=== PATIENT | male | born 1945 | race Caucasian/White ===

== ENCOUNTER 2017-10-23 16:41 | Inpatient (IN) | payer MEDICARE ==
[~2017-10-23] VITALS: Ht 182.9 cm; Wt 97.6 kg
[2017-10-23 19:40] VITALS: BP 139/90
[2017-10-23] MEDS ORDERED: MAG HYDROX/AL HYDROX/SIMETH 30 ML ORAL.SUSP PO PRN (19:45)
[2017-10-23] MEDS ORDERED: METHYL SALICYLATE/MENTHOL TOPICAL OINTMENT 29GM TUBE. TP PRN (19:45)
[2017-10-23] MEDS ORDERED: MAGNESIUM HYDROXIDE 2,400 MG/30 ML ORAL.SUSP. PO PRN (19:45)
[2017-10-23 20:16] LABS: BASO % 0 % (0-3); EOS % 0 % (0-3); HEMATOCRIT 40.7 % (39.0-53.0); HEMOGLOBIN 13.9 g/dL (13.0-17.5); LYMPH # 0.6 x10^3/uL (1.0-4.8); LYMPH % 6 % (24-48); MEAN CORPUSCULAR HEMOGLOBIN 33 pg (25-35); MEAN CORPUSCULAR HGB CONC 34 g/dL (31-37); MEAN CORPUSCULAR VOLUME 97 fL (79-100); MONO # 0.8 x10^3/uL (0.0-1.1); MONO % 8 % (0-9); NEUT # 8.6 x10^3uL (1.8-7.7); NEUT % 86 % (31-73); PLATELET COUNT 247 x10^3/uL (140-400); RED BLOOD COUNT 4.18 x10^6/uL (4.30-5.70); RED CELL DISTRIBUTION WIDTH 15.2 % (11.5-14.5)
--- NOTE | 2017-10-23 20:21 | PDOC ---
Exam Note: Clifford Note: Please also refer to the separate dictated note~for this date of service dictated separately.~Patient seen individually. Discussed the patient with Nursing staff reviewed the chart.~Reviewed interim history and current functioning. Reviewed vital signs,~Labs/ Radiology~and current medications noted below. Continue current treatment with the changes noted in the dictated addendum note Assessment: Vital Signs: Vital Signs Date Time Temp Pulse Resp B/P (MAP) Pulse Ox O2 Delivery O2 Flow Rate FiO2 10/23/17 19:40 97.8 86 18 139/90 (106) 96 Labs: Laboratory Tests Test 10/23/17 19:58 White Blood Count 10.0 x10^3/uL (4.0-11.0) Red Blood Count 4.18 x10^6/uL (4.30-5.70) L Hemoglobin 13.9 g/dL (13.0-17.5) Hematocrit 40.7 % (39.0-53.0) Mean Corpuscular Volume 97 fL (79-100) Mean Corpuscular Hemoglobin 33 pg (25-35) Mean Corpuscular Hemoglobin Concent 34 g/dL (31-37) Red Cell Distribution Width 15.2 % (11.5-14.5) H Platelet Count 247 x10^3/uL (140-400) Neutrophils (%) (Auto) 86 % (31-73) H Lymphocytes (%) (Auto) 6 % (24-48) L Monocytes (%) (Auto) 8 % (0-9) Eosinophils (%) (Auto) 0 % (0-3) Basophils (%) (Auto) 0 % (0-3) Neutrophils # (Auto) 8.6 x10^3uL (1.8-7.7) H Lymphocytes # (Auto) 0.6 x10^3/uL (1.0-4.8) L Monocytes # (Auto) 0.8 x10^3/uL (0.0-1.1) Eosinophils # (Auto) 0.0 x10^3/uL (0.0-0.7) Basophils # (Auto) 0.0 x10^3/uL (0.0-0.2) Current Medications: Meds: Current Medications Acetaminophen (Tylenol) 650 mg PRN Q6HRS PRN PO PAIN / TEMP; Start 10/23/17 at 19:45 Multi-Ingredient Ointment (Analgesic [place]) 1 josse PRN QID PRN TP MUSCLE PAIN; Start 10/23/17 at 19:45 Al Hydroxide/Mg Hydroxide (Mylanta Plus Xs) 15 ml PRN AFTMEALHC PRN PO DYSPEPSIA; Start 10/23/17 at 19:45 Magnesium Hydroxide (Milk Of Magnesia) 2,400 mg PRN QHS PRN PO CONSTIPATION; Start 10/23/17 at 19:45 I have reviewed the current psychotropics carefully including drug interactions. Risk benefit ratio favors no change other than as noted in my dictated progress note. JAILENE SEO MD October 23, 2017 20:21
[2017-10-23 20:22] LABS: ALBUMIN 3.5 g/dL (3.4-5.0); ALBUMIN/GLOBULIN RATIO 0.9 (1.0-1.7); CALCIUM 9.5 mg/dL (8.5-10.1); CREATININE 2.2 mg/dL (0.7-1.3); GFR 29.7; POTASSIUM 4.1 mmol/L (3.5-5.1); TOTAL BILIRUBIN 0.6 mg/dL (0.2-1.0); TOTAL PROTEIN 7.3 g/dL (6.4-8.2)
[2017-10-23 20:25] LABS: VAL ACID 23 mcg/mL (50-100)
[2017-10-23 22:05] LABS: BILIRUBIN,URINE NEG (NEG); CLARITY,URINE CLEAR; COLOR,URINE YELLOW; GLUCOSE,URINE 500 mg/dL (NEG)
[2017-10-23 22:06] LABS: BACTERIA,URINE 0 /HPF (0-FEW); NITRITE,URINE NEG (NEG); SQUAMOUS EPITHELIAL CELL,UR FEW /LPF; UROBILINOGEN,URINE 0.2 mg/dL (0.2 mg/dL)
[2017-10-23] MEDS ORDERED: PANT40TA5 PO (22:19)
[2017-10-23] MEDS ORDERED: MAGN400C PO (22:19)
[2017-10-23] MEDS ORDERED: URSO500T8 PO (22:19)
[2017-10-23] MEDS ORDERED: INSU100I17 SQ (22:19)
[2017-10-23] MEDS ORDERED: NEOM28.32 TP (22:19)
[2017-10-23] MEDS ORDERED: INSU100I13 SQ (22:19)
[2017-10-23] MEDS ORDERED: POSA100T PO (22:19)
[2017-10-23] MEDS ORDERED: DONE5TAB7 PO (22:19)
[2017-10-23] MEDS ORDERED: CYAN10002 IJ (22:19)
[2017-10-23] MEDS ORDERED: DAPS100T PO (22:19)
[2017-10-23] MEDS ORDERED: ACYC400T PO (22:19)
[2017-10-23] MEDS ORDERED: PRED20TA PO (22:19)
[2017-10-23] MEDS ORDERED: DIVA250T PO (22:19)
[2017-10-23] MEDS ORDERED: DEXTROSE 50% 25 GM / 50ML DISP.SYRIN. IV PRN (22:30)
[2017-10-24] MEDS ORDERED: PARO20TA99 PO
[2017-10-24 02:36] VITALS: BP 106/77
[2017-10-24] MEDS: ACETAMINOPHEN 325 MG TABLET PO PRN (02:41)
--- NOTE | 2017-10-24 04:14 | RAD ---
INDICATION: fall, 2 lacerations on top to occipital region of head with a large bump/contusion on forehead COMPARISON: None. TECHNIQUE: Axial CT images obtained through the head without intravenous contrast. One or more of the following individualized dose reduction techniques were utilized for this examination: 1. Automated exposure control; 2. Adjustment of the mA and/or kV according to patient size; 3. Use of iterative reconstruction technique. FINDINGS: No intracranial hemorrhage. No midline shift. Basal cisterns patents. Ventricles and sulci are globally prominent. No acute osseous abnormality. Orbits and paranasal sinuses unremarkable. Scattered foci of low attenuation within the white matter. IMPRESSION: 1. No acute intracranial hemorrhage. 2. Scattered regions of low attenuation within the white matter. Non-specific in nature but frequently secondary to chronic small vessel ischemic disease. 3. Prominence of ventricles and sulci which is frequently secondary to age related volume loss. Electronically signed by: Bello Taylor MD (10/24/2017 4:10 AM) [id number]
[2017-10-24 06:04] VITALS: BP 110/63
[2017-10-24] MEDS ORDERED: POSACONAZOLE 100 MG PO SCH (08:00)
[2017-10-24] MEDS: predniSONE 20 MG TABLET PO SCH (08:12)
[2017-10-24] MEDS: DONEPEZIL HCL 5 MG TABLET. PO SCH (08:12)
[2017-10-24] MEDS: MAGNESIUM OXIDE 400 MG TABLET PO SCH (08:12)
[2017-10-24] MEDS: PANTOPRAZOLE 40 MG TABLET. PO SCH (08:12)
[2017-10-24] MEDS: NEOMY/BACITR/POLYMYXIN OINT PACKET. TP SCH ×2 (08:13→21:00)
[2017-10-24] MEDS: DAPSONE 100 MG TABLET PO SCH (08:13)
[2017-10-24] MEDS: ACYCLOVIR 200 MG CAPSULE PO SCH ×2 (08:13→21:00)
[2017-10-24] MEDS: INSULIN LISPRO 300 UNITS/3 ML INSULN.PEN. SQ SCH ×4 (08:15→21:00)
[2017-10-24] MEDS ORDERED: DIVALPROEX ER 250 MG TAB.ER.24H. PO SCH ×2 (09:00→21:00)
[2017-10-24 12:40] LABS: THYROID STIM HORMONE (TSH) 0.353 uIU/mL (0.358-3.740)
[2017-10-24] MEDS: PARoxetine 20 MG TABLET PO SCH (17:00)
[2017-10-24 18:22] VITALS: BP 160/91
--- NOTE | 2017-10-24 19:28 | HP ---
ADMIT DATE: 10/24/2017 IDENTIFYING DATA: The patient was seen individually evening of 10/24/2017. Discussed with the nursing staff. Previously, I discussed with the nursing staff on several occasions to gather historical information from [facility] where the patient has been hospitalized and had a psychiatric consult, which recommended inpatient psychiatric stabilization. 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 CHIEF COMPLAINT: "There is nothing wrong with my memory. It is 03/2018. The president is president Mesfin. Before him, it was Obama. Before him, it was Christian." HISTORY OF PRESENT ILLNESS: The patient has been an inpatient at the [facility] and was seen for a psychiatric consult by the consultation service and diagnosed with major neurocognitive disorder, Lewy body type. He does have a history of Parkinson's and chronic myelomonocytic leukemia. He has been increasingly agitated, has significant variations in his mentation at different times of the day. At periods of time, he appears more oriented; other times, he is oriented, not very minimally. He has been angry, irritable, demanding, threatening at times, and attempting to leave AMA, and even here on the unit, he has told the nursing staff, he could take a chair and threw it through the window to get out of here. He has been paranoid. He has had some sleep and appetite changes. No clear history of bipolar disorder. PAST PSYCHIATRIC HISTORY: As above. MEDICAL HISTORY: Positive for Parkinson's disease, chronic myelomonocytic leukemia, acute kidney injury, hypertension, diabetes mellitus. He is noted to be somewhat obsessive has a CMV reactivation, gout, and arthritis, Accu-Cheks before noon and at bedtime. ALLERGIES: BACTRIM. CODE STATUS: Full code. He ambulates up, Ad-Indira. MEDICATIONS: Takes his medications whole. DIET: Regular. No dietary restrictions. CURRENT PSYCHOTROPICS: Aricept 5 mg a day, Depakote DR 250 mg b.i.d., and Paxil 20 mg a day. FAMILY HISTORY: Noncontributory. 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 No alcohol or drug abuse history is noted. He was living at home with his in [place], [place]. MENTAL STATUS EXAM: The patient was seen individually evening of 10/24/2017. He believed it was 03/2018, and as noted above, he was unaware of, who the President was, prior to President Obama; he felt it was president Thien Gonzales. He is anxious, angry at times, using profanities, expressing himself, and this was initially; later in the session, he was much more cooperative. He has made statements to the nursing staff about taking a chair and throwing it through the window, but denied it when I questioned him. No active suicidal or homicidal ideation. Mood and affect are labile. Short-term memory is impaired. Reaction to hospitalization, the patient reluctantly accepting it. ASSETS: Supportive . IMPRESSION: Major neurocognitive disorder, Lewy body type with delusion, depression, behavioral disturbance, major neurocognitive disorder secondary to Parkinson's with delusion, depression, behavioral disturbance; anxiety disorder, unspecified; impulse control disorder, unspecified. Rest unchanged from above. PLAN: Admit to geropsychiatry unit at [facility]. I will see the patient daily individually from a psychiatric standpoint. Valproic acid level is 23 on current dosage of Depakote. We will change it to Depakene liquid to help with the compliance, increase it to 375 mg two times a day. Check CBC, CMP, valproic acid level in 3 days. Start Zyprexa 2.5 mg every 2 hours as needed psychosis, agitation, max 10 mg in 24 hours, trazodone 50 mg at bedtime as needed, may repeat x 1 for insomnia. Further changes depending on the reaction to initial changes. JAILENE SEO MD DR: DENA/marlon JOB#: [id number] / [id number]
[2017-10-24 20:08] LABS: T3 TOTAL 46 ng/dL (71-180); THYROXINE 7.1 ug/dL (4.5-12.0)
[2017-10-24] MEDS: INSULIN GLARGINE 300 UNITS/3 ML INSULN.PEN. SQ SCH (21:00)
--- NOTE | 2017-10-24 22:16 | PDOC ---
Exam Note: Clifford Note: Please also refer to the separate dictated note~for this date of service dictated separately.~Patient seen individually. Discussed the patient with Nursing staff reviewed the chart.~Reviewed interim history and current functioning. Reviewed vital signs,~Labs/ Radiology~and current medications noted below. Continue current treatment with the changes noted in the dictated addendum note Assessment: Vital Signs: Vital Signs Date Time Temp Pulse Resp B/P (MAP) Pulse Ox O2 Delivery O2 Flow Rate FiO2 10/24/17 18:22 98.1 92 18 160/91 (114) 97 Labs: Laboratory Tests Test 10/24/17 07:54 10/24/17 11:38 Glucose (Fingerstick) 216 mg/dL (70-99) H 118 mg/dL (70-99) H Current Medications: Meds: Current Medications Acetaminophen (Tylenol) 650 mg PRN Q6HRS PRN PO PAIN / TEMP Last administered on 10/24/17at 02:41; Start 10/23/17 at 19:45 Multi-Ingredient Ointment (Analgesic [place]) 1 jennifer PRN QID PRN TP MUSCLE PAIN; Start 10/23/17 at 19:45 Al Hydroxide/Mg Hydroxide (Mylanta Plus Xs) 15 ml PRN AFTMEALHC PRN PO DYSPEPSIA; Start 10/23/17 at 19:45 Magnesium Hydroxide (Milk Of Magnesia) 2,400 mg PRN QHS PRN PO CONSTIPATION; Start 10/23/17 at 19:45 Divalproex Sodium (Depakote Er) 250 mg BID PO Last administered on 10/24/17at 08 :12; Start 10/24/17 at 09:00; Stop 10/24/17 at 19:17; Status DC Cyanocobalamin (Vitamin B-12) 1,000 mcg WEEKLY IM ; Start 10/30/17 at 09:00 Dapsone (Aczone) 100 mg DAILY PO Last administered on 10/24/17at 08:13; Start at 09:00 Donepezil HCl (Aricept) 5 mg DAILY PO Last administered on 10/24/17at 08:12; Start 10/24/17 at 09:00 Insulin Glargine (Lantus) 15 units QHS SQ ; Start 10/24/17 at 21:00 Prednisone (Prednisone) 40 mg DAILYWBKFT PO Last administered on 10/24/17at 08: 12; Start 10/24/17 at 08:00 Acyclovir (Zovirax) 400 mg Q12HR PO Last administered on 10/24/17at 08:13; Start 10/24/17 at 09:00 Magnesium Oxide (Magnesium Oxide) 400 mg DAILY PO Last administered on at 08:12; Start 10/24/17 at 09:00 Neomycin/ Polymyxin/ Bacitracin (Triple Antibiotic Ointment) 1 pkt BID TP Last administered on 10/24/17at 08:13; Start 10/24/17 at 09:00 Pantoprazole Sodium (Protonix) 40 mg DAILYAC PO Last administered on 10/24/17at 08:12; Start 10/24/17 at 07:30 Non-Formulary Medication (Posaconazole (Noxafil)) 100 mg DAILYWBKFT PO ; Start 10/24/17 at 08:00; Stop 10/24/17 at 08:42; Status DC Insulin Human Lispro (HumaLOG) 0-9 UNITS TIDWMEALHC SQ Last administered on at 08:15; Start 10/24/17 at 08:00 Dextrose 12.5 gm PRN Q15MIN PRN IV SEE COMMENTS; Start 10/23/17 at 22:30 Paroxetine HCl (Paxil) 20 mg DAILYWSUP PO ; Start 10/24/17 at 17:00 Trazodone HCl (Desyrel) 50 mg PRN QHS PRN PO INSOMNIA, MAY REPEAT X1; Start at 18:45 Olanzapine (ZyPREXA ZYDIS) 2.5 mg PRN Q2HR PRN PO ANXIETY / AGITATION; Start at 18:45 Divalproex Sodium (Depakote Er) 375 mg BID PO ; Start 10/24/17 at 21:00 Active Scripts Active Reported Paxil (Paroxetine Hcl) 20 Mg Tablet 20 Mg PO DAILYWSUP Ursodiol 500 Mg Tablet 500 Mg PO Lantus Solostar (Insulin Glargine,Hum.rec.anlog) 100 Unit/1 Ml Insuln.pen 15 Units SQ QHS Novolog Flexpen (Insulin Aspart) 100 Unit/1 Ml Insuln.pen 0-14 Units SQ Donepezil Hcl 5 Mg Tablet 5 Mg PO DAILY Dapsone 100 Mg Tablet 100 Mg PO DAILY Cyanocobalamin Injection (Cyanocobalamin (Vitamin B-12)) 1,000 Mcg/1 Ml Vial 1, 000 Mcg IJ WEEKLY Acyclovir 400 Mg Tablet 400 Mg PO Q12HR Magnesium (Magnesium Oxide) 400 Mg Capsule 400 Mg PO DAILY Prednisone 20 Mg Tablet 40 Mg PO DAILYWBKFT Noxafil (Posaconazole) 100 Mg Tablet.dr 100 Mg PO DAILYWBKFT Pantoprazole Sodium 40 Mg Tablet.dr 40 Mg PO DAILY Neosporin Ointment (Neomy Sulf/Bacitrac Zn/Poly) 28.3 Gm Oint...g. 1 Jennifer TP BID Depakote Er (Divalproex Sodium) 250 Mg Tab.er.24h 250 Mg PO BID I have reviewed the current psychotropics carefully including drug interactions. Risk benefit ratio favors no change other than as noted in my dictated progress note. Diagnosis: Problems: (1) Anxiety disorder (2) Lewy body dementia with behavioral disturbance (3) Impulse control disorder JAILENE SEO MD October 24, 2017 22:16
[2017-10-25 03:07] LABS: HEMOGLOBIN A1C 6.2 % (4.8-5.6)
--- NOTE | 2017-10-25 04:16 | CONS ---
DATE OF CONSULTATION: 10/24/2017 REASON FOR CONSULTATION: Medical management. HISTORY OF PRESENT ILLNESS: The patient is a 71-year-old male patient with a history of chronic myelomonocytic leukemia status post stem cell transplantation on 12/23/2017, and since then the patient has altered mental status. He has been aggressive verbally, eloped off of the locked unit from at [facility] twice, refusing medication and when I spoke to him apparently he wanted to get out of here to go home, apparently was very aggressive and verbally abusive to his and she was scared to take him home. PAST MEDICAL HISTORY: Significant for chronic myelomonocytic leukemia status post stem cell transplantation on 12/23/2017. He has acute kidney injury, has hypertension, diabetes, cytomegalovirus reactivation, gout and arthritis. PAST PSYCHIATRIC HISTORY: Significant for dementia with possible Lewy body, Parkinson's disease, OCD, major depressive disorder and neurocognitive disorder. PAST SURGICAL HISTORY: Significant for bone marrow biopsy. He has also colonoscopy, hernia repair, appendectomy, rotator cuff repair, tonsillectomy, adenoidectomy, transurethral resection of the prostate and lithotripsy x 2. FAMILY HISTORY: Noncontributory. SOCIAL HISTORY: He is . He is a former smoker, quit in 08/1991, never used smokeless tobacco, does not drink alcohol or use any recreational drugs. ALLERGIES: HE IS ALLERGIC TO BACTRIM. MEDICATIONS: He was transferred to [facility] on the following medications: He is on Noxafil 100 mg daily, dapsone 100 mg daily, acyclovir 400 mg q. 12 hourly, Aricept 5 mg daily, divalproex sodium 250 mg p.o. b.i.d., duloxetine 20 mg daily. He is on magnesium oxide 400 mg daily, ursodiol 500 mg once a day. He is on Protonix 40 mg once a day, prednisone 40 mg daily. He is on NovoLog insulin ____-14 units subcutaneously before meals and Lantus insulin 50 units at bedtime. He is on Neosporin ointment applied topically twice a day, cyanocobalamin, vitamin B12 1000 mcg intramuscular once a week. REVIEW OF SYSTEMS: Unobtainable. The patient was very uncooperative and angry. PHYSICAL EXAMINATION: GENERAL: However, on examining him, he looked pale. No jaundice, cyanosis, or thyromegaly. No jugular venous distention. No lower limb edema. VITAL SIGNS: Her heart rate was 78, blood pressure 110/63, temperature was 97.4, respiratory rate was 16 and oxygen saturation was 94%. The rest of clinical examination is unremarkable. The patient is ambulatory, ambulates without assistance or assistive devices. LABORATORY DATA: Showed a white cell count of 10,000; hemoglobin 14; hematocrit 41; MCV 97 and platelet count 247,000. His chemistry showed a serum sodium to be 138, potassium 4.1, chloride 102, bicarbonate 23, anion gap of 13, BUN 41, creatinine 2.2, estimated GFR was 50 mL per minute. His glucose is 276, calcium was 9.5, magnesium 2. Total bilirubin, AST, ALT, alkaline phosphatase were normal. Total protein was 7.3, albumin 3.5. His serum iron was 77, TIBC was 296, percent saturation was 26. His serum triglyceride was 138. Total cholesterol 179, LDL was 100, VLDL was 27, HDL cholesterol was 52 and the ratio was 3. His TSH was low at 0.353. Vitamin B12 was more than 2000 pg/mL. His urinalysis showed the urine was yellow, clear with a pH of 5.5, specific gravity was 1.020. There was large amount of protein, large amount of glucose, trace of ketones, trace of blood, negative for nitrite and leukocyte esterase, 3-5 rbc's, 5-10 wbc's and no bacteria. His urine toxicology screen showed valproic acid to be only 23. He did have a CT scan of the head, which basically showed no acute intracranial hemorrhage, scattered regions of low attenuation within the white matter, nonspecific in nature, but frequently secondary to chronic small vessel ischemic disease. Has prominence of ventricles and sulci, which is frequently secondary to, age-related volume loss. ASSESSMENT AND PLAN: In summary, this is a 71-year-old male patient who was admitted from [facility], as he has been verbally aggressive and eloped from secure unit x 2. He has major neurocognitive disorder with delusion, depression, possible Lewy body. He has multiple medical problems including a chronic myelomonocytic leukemia status post stem cell transplant. He seems to have acute on chronic kidney injury, hypertension, type 2 diabetes, gout and arthritis. Medically, the patient seems to be generally stable. He does have obviously chronic kidney disease that is stable. Hypertension seems to be well controlled. Type 2 diabetes, unfortunately he is uncooperative and refuses his insulin; however, that is a result of his neurocognitive disorder. We will obviously follow him closely and make any recommendation. Thank you, Dr. Loving, for allowing me to participate in the care of this patient. MERLINE CAMPUZANO MD DR: GARCIA/marlon JOB#: [id number] / [id number]
[2017-10-25 06:06] VITALS: BP 104/67
[2017-10-25] MEDS: PANTOPRAZOLE 40 MG TABLET. PO SCH (07:55)
[2017-10-25] MEDS: DIVALPROEX 125 MG CAP.SPRINK PO SCH ×2 (07:58→20:57)
[2017-10-25] MEDS: MAGNESIUM OXIDE 400 MG TABLET PO SCH (07:58)
[2017-10-25] MEDS: DONEPEZIL HCL 5 MG TABLET. PO SCH (07:58)
[2017-10-25] MEDS: ACYCLOVIR 200 MG CAPSULE PO SCH ×2 (07:59→20:57)
[2017-10-25] MEDS: DAPSONE 100 MG TABLET PO SCH (07:59)
[2017-10-25] MEDS: predniSONE 20 MG TABLET PO SCH (07:59)
[2017-10-25] MEDS: INSULIN LISPRO 300 UNITS/3 ML INSULN.PEN. SQ SCH ×4 (08:05→21:00)
[2017-10-25] MEDS: NEOMY/BACITR/POLYMYXIN OINT PACKET. TP SCH ×2 (08:08→21:02)
[2017-10-25] MEDS: PARoxetine 20 MG TABLET PO SCH (16:44)
[2017-10-25 16:48] VITALS: BP 145/83
--- NOTE | 2017-10-25 20:19 | PDOC ---
Exam Note: Clifford Note: Please also refer to the separate dictated note~for this date of service dictated separately.~Patient seen individually. Discussed the patient with Nursing staff reviewed the chart.~Reviewed interim history and current functioning. Reviewed vital signs,~Labs/ Radiology~and current medications noted below. Continue current treatment with the changes noted in the dictated addendum note Assessment: Vital Signs: Vital Signs Date Time Temp Pulse Resp B/P (MAP) Pulse Ox O2 Delivery O2 Flow Rate FiO2 10/25/17 16:48 96.8 95 18 145/83 (103) 99 Room Air I&O Intake and Output 10/25/17 07:00 Intake Total 480 ml Balance 480 ml Intake Oral 480 ml Labs: Laboratory Tests Test 10/25/17 07:43 10/25/17 11:36 10/25/17 17:03 10/25/17 19:36 Glucose (Fingerstick) 171 mg/dL (70-99) H 179 mg/dL (70-99) H 323 mg/dL (70-99) H 214 mg/dL (70-99) H Current Medications: Meds: Current Medications Acetaminophen (Tylenol) 650 mg PRN Q6HRS PRN PO PAIN / TEMP Last administered on 10/24/17at 02:41; Start 10/23/17 at 19:45 Multi-Ingredient Ointment (Analgesic [place]) 1 jennifer PRN QID PRN TP MUSCLE PAIN; Start 10/23/17 at 19:45 Al Hydroxide/Mg Hydroxide (Mylanta Plus Xs) 15 ml PRN AFTMEALHC PRN PO DYSPEPSIA; Start 10/23/17 at 19:45 Magnesium Hydroxide (Milk Of Magnesia) 2,400 mg PRN QHS PRN PO CONSTIPATION; Start 10/23/17 at 19:45 Divalproex Sodium (Depakote Er) 250 mg BID PO Last administered on 10/24/17at 08 :12; Start 10/24/17 at 09:00; Stop 10/24/17 at 19:17; Status DC Cyanocobalamin (Vitamin B-12) 1,000 mcg WEEKLY IM ; Start 10/30/17 at 09:00 Dapsone (Aczone) 100 mg DAILY PO Last administered on 10/25/17at 07:59; Start at 09:00 Donepezil HCl (Aricept) 5 mg DAILY PO Last administered on 10/25/17at 07:58; Start 10/24/17 at 09:00; Stop 10/25/17 at 18:25; Status DC Insulin Glargine (Lantus) 15 units QHS SQ ; Start 10/24/17 at 21:00 Prednisone (Prednisone) 40 mg DAILYWBKFT PO Last administered on 10/25/17at 07: 59; Start 10/24/17 at 08:00 Acyclovir (Zovirax) 400 mg Q12HR PO Last administered on 10/25/17at 07:59; Start 10/24/17 at 09:00 Magnesium Oxide (Magnesium Oxide) 400 mg DAILY PO Last administered on at 07:58; Start 10/24/17 at 09:00 Neomycin/ Polymyxin/ Bacitracin (Triple Antibiotic Ointment) 1 pkt BID TP Last administered on 10/25/17at 08:08; Start 10/24/17 at 09:00 Pantoprazole Sodium (Protonix) 40 mg DAILYAC PO Last administered on 10/25/17at 07:55; Start 10/24/17 at 07:30 Non-Formulary Medication (Posaconazole (Noxafil)) 100 mg DAILYWBKFT PO ; Start 10/24/17 at 08:00; Stop 10/24/17 at 08:42; Status DC Insulin Human Lispro (HumaLOG) 0-9 UNITS TIDWMEALHC SQ Last administered on at 17:32; Start 10/24/17 at 08:00 Dextrose 12.5 gm PRN Q15MIN PRN IV SEE COMMENTS; Start 10/23/17 at 22:30 Paroxetine HCl (Paxil) 20 mg DAILYWSUP PO Last administered on 10/25/17at 16:44 ; Start 10/24/17 at 17:00 Trazodone HCl (Desyrel) 50 mg PRN QHS PRN PO INSOMNIA, MAY REPEAT X1; Start at 18:45 Olanzapine (ZyPREXA ZYDIS) 2.5 mg PRN Q2HR PRN PO ANXIETY / AGITATION; Start at 18:45 Divalproex Sodium (Depakote Er) 375 mg BID PO ; Start 5/16/18 at 21:00; Stop at 07:46; Status DC Divalproex Sodium (Depakote Sprinkles) 375 mg BID PO Last administered on at 07:58; Start 10/25/17 at 09:00 Memantine (Namenda) 5 mg DAILY PO ; Start 10/26/17 at 09:00 Donepezil HCl (Aricept) 10 mg DAILY PO ; Start 10/26/17 at 09:00 Active Scripts Active Reported Paxil (Paroxetine Hcl) 20 Mg Tablet 20 Mg PO DAILYWSUP Ursodiol 500 Mg Tablet 500 Mg PO Lantus Solostar (Insulin Glargine,Hum.rec.anlog) 100 Unit/1 Ml Insuln.pen 15 Units SQ QHS Novolog Flexpen (Insulin Aspart) 100 Unit/1 Ml Insuln.pen 0-14 Units SQ Donepezil Hcl 5 Mg Tablet 5 Mg PO DAILY Dapsone 100 Mg Tablet 100 Mg PO DAILY Cyanocobalamin Injection (Cyanocobalamin (Vitamin B-12)) 1,000 Mcg/1 Ml Vial 1, 000 Mcg IJ WEEKLY Acyclovir 400 Mg Tablet 400 Mg PO Q12HR Magnesium (Magnesium Oxide) 400 Mg Capsule 400 Mg PO DAILY Prednisone 20 Mg Tablet 40 Mg PO DAILYWBKFT Noxafil (Posaconazole) 100 Mg Tablet. 100 Mg PO DAILYWBKFT Pantoprazole Sodium 40 Mg Tablet. 40 Mg PO DAILY Neosporin Ointment (Neomy Sulf/Bacitrac Zn/Poly) 28.3 Gm Oint...g. 1 Jennifer TP BID Depakote Er (Divalproex Sodium) 250 Mg Tab.er.24h 250 Mg PO BID I have reviewed the current psychotropics carefully including drug interactions. Risk benefit ratio favors no change other than as noted in my dictated progress note. Diagnosis: Problems: (1) Anxiety disorder (2) Lewy body dementia with behavioral disturbance (3) Impulse control disorder JAILENE SEO MD October 25, 2017 20:18
[2017-10-25] MEDS: INSULIN GLARGINE 300 UNITS/3 ML INSULN.PEN. SQ SCH (21:01)
[2017-10-26] MEDS: PARoxetine 20 MG TABLET PO SCH (07:50)
[2017-10-26] MEDS: predniSONE 20 MG TABLET PO SCH (07:50)
[2017-10-26] MEDS: DIVALPROEX 125 MG CAP.SPRINK PO SCH ×2 (07:50→20:44)
[2017-10-26] MEDS: MAGNESIUM OXIDE 400 MG TABLET PO SCH (07:50)
[2017-10-26] MEDS: PANTOPRAZOLE 40 MG TABLET. PO SCH (07:50)
[2017-10-26] MEDS: ACYCLOVIR 200 MG CAPSULE PO SCH ×2 (07:53→20:45)
[2017-10-26] MEDS: DAPSONE 100 MG TABLET PO SCH (07:53)
[2017-10-26] MEDS: NEOMY/BACITR/POLYMYXIN OINT PACKET. TP SCH (07:54)
[2017-10-26] MEDS: MEMANTINE 5 MG TABLET. PO SCH (07:57)
[2017-10-26] MEDS: INSULIN LISPRO 300 UNITS/3 ML INSULN.PEN. SQ SCH ×4 (07:57→20:52)
[2017-10-26] MEDS: DONEPEZIL HCL 10 MG TABLET PO SCH (07:57)
[2017-10-26 16:21] VITALS: BP 142/87
[2017-10-26] MEDS: INSULIN GLARGINE 300 UNITS/3 ML INSULN.PEN. SQ SCH (20:46)
[2017-10-26] MEDS: traZODone 50 MG TABLET. PO PRN (20:47)
--- NOTE | 2017-10-27 03:01 | PN ---
DATE: 10/24/2017 This late entry 10/24/2017 covers elements not covered in my initial note 10/24/2017. SUBJECTIVE: The patient was staffed at a treatment team meeting in the afternoon, seen individually in the evening. 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 He did have a fall previous evening. CT head is negative, more compliant with taking his medications. REVIEW OF SYSTEMS: No CV, , pulmonary, eye, ENT system symptoms on review. MENTAL STATUS EXAM: Oriented to himself and situation. Speech has some latency, coherent. Abstraction fair, computation impaired, language function intact. Mood and affect remain somewhat labile, anxious, and suspicious. LABORATORY DATA: Reviewed. IMPRESSION: Major neurocognitive disorder, Lewy body with delusion, depression. Rest unchanged. PLAN: Continue psychotropics mentioned in my initial note. On direct questioning, the patient felt it was March 2018, felt Trlon was the President and Obama before him, unaware of the Hendrix being before Obama and felt it was Christian before President Hendrix. We will continue current psychotropics, adjust as clinically indicated. JAILENE SEO MD DR: DENA/marlon JOB#: [id number] / [id number]
--- NOTE | 2017-10-27 03:10 | PN ---
DATE: 10/25/2017 This late entry 10/25/2017 covers elements not covered in my initial note 10/25/2017. SUBJECTIVE: I met with the patient in the evening. The patient refused his bedtime medications, but then took his medication during the day on 10/25/2017, took them whole. In the evening, he was interacting better with staff. REVIEW OF SYSTEMS: No CV, , pulmonary, eye, ENT system symptoms on review. Reliability poor. MENTAL STATUS EXAM: Oriented to himself. Insight, judgment, recent and remote memory, attention, concentration, fund of knowledge poor, consistent with his diagnosis mentioned in my initial note including major neurocognitive disorder, Lewy body with delusion, depression, behavioral disturbance. Rest unchanged. PLAN: Start Namenda 5 mg a day. Increase Aricept to 10 mg a day. Continue Depakote, Paxil, trazodone for now. Follow labs level, adjust to reach therapeutic level on the Depakote. MAN Raj SEO MD DR: DENA/marlon JOB#: [id number] / [id number]
[2017-10-27 06:11] VITALS: BP 129/79
[2017-10-27 07:50] LABS: BASO % 0 % (0-3); EOS % 0 % (0-3); HEMATOCRIT 36.5 % (39.0-53.0); HEMOGLOBIN 12.8 g/dL (13.0-17.5); LYMPH # 1.2 x10^3/uL (1.0-4.8); LYMPH % 13 % (24-48); MEAN CORPUSCULAR HEMOGLOBIN 34 pg (25-35); MEAN CORPUSCULAR HGB CONC 35 g/dL (31-37); MEAN CORPUSCULAR VOLUME 97 fL (79-100); MONO # 0.8 x10^3/uL (0.0-1.1); MONO % 9 % (0-9); NEUT % 78 % (31-73); PLATELET COUNT 198 x10^3/uL (140-400); RED BLOOD COUNT 3.77 x10^6/uL (4.30-5.70); RED CELL DISTRIBUTION WIDTH 15.4 % (11.5-14.5)
[2017-10-27] MEDS: INSULIN LISPRO 300 UNITS/3 ML INSULN.PEN. SQ SCH ×4 (08:00→20:43)
[2017-10-27] MEDS: MEMANTINE 5 MG TABLET. PO SCH (08:19)
[2017-10-27] MEDS: DIVALPROEX 125 MG CAP.SPRINK PO SCH (08:19)
[2017-10-27] MEDS: DONEPEZIL HCL 10 MG TABLET PO SCH (08:19)
[2017-10-27] MEDS: predniSONE 20 MG TABLET PO SCH (08:19)
[2017-10-27] MEDS: PANTOPRAZOLE 40 MG TABLET. PO SCH (08:19)
[2017-10-27] MEDS: MAGNESIUM OXIDE 400 MG TABLET PO SCH (08:19)
[2017-10-27 08:20] LABS: ALBUMIN 3.2 g/dL (3.4-5.0); ALBUMIN/GLOBULIN RATIO 0.9 (1.0-1.7); ALK PHOS 52 U/L (46-116); ALT (SGPT) 32 U/L (16-63); ANION GAP 11 (6-14); AST (SGOT) 25 U/L (15-37); BLOOD UREA NITROGEN 31 mg/dL (8-26); BUN/CREATININE RATIO 18 (6-20); CALCIUM 9.2 mg/dL (8.5-10.1); CARBON DIOXIDE 24 mmol/L (21-32); CHLORIDE 106 mmol/L (98-107); CREATININE 1.7 mg/dL (0.7-1.3); GFR 39.9; GLUCOSE 141 mg/dL (70-99); POTASSIUM 3.7 mmol/L (3.5-5.1); SODIUM 141 mmol/L (136-145); TOTAL BILIRUBIN 0.6 mg/dL (0.2-1.0); TOTAL PROTEIN 6.6 g/dL (6.4-8.2)
[2017-10-27] MEDS: ACYCLOVIR 200 MG CAPSULE PO SCH ×2 (08:20→20:52)
[2017-10-27] MEDS: DAPSONE 100 MG TABLET PO SCH (08:22)
[2017-10-27 08:31] LABS: VAL ACID 40 mcg/mL (50-100)
[2017-10-27 16:37] VITALS: BP 150/83
[2017-10-27] MEDS: PARoxetine 20 MG TABLET PO SCH (17:00)
[2017-10-27] MEDS: INSULIN GLARGINE 300 UNITS/3 ML INSULN.PEN. SQ SCH (20:42)
[2017-10-27] MEDS: traZODone 50 MG TABLET. PO PRN (20:56)
[2017-10-27] MEDS ORDERED: DIVALPROEX 125 MG CAP.SPRINK PO SCH (21:00)
--- NOTE | 2017-10-27 22:46 | PDOC ---
Exam Note: Clifford Note: Late entry for date of service October 26, 2017. Please also refer to the separate dictated note~for this date of service dictated separately.~Patient seen individually. Discussed the patient with Nursing staff reviewed the chart.~ Reviewed interim history and current functioning. Reviewed vital signs,~Labs/ Radiology~and current medications noted below. Continue current treatment with the changes noted in the dictated addendum note Assessment: Vital Signs: VS - Last 72 Hours, by Label Date Time Temp Pulse Resp B/P (MAP) Pulse Ox O2 Delivery O2 Flow Rate FiO2 10/27/17 16:37 98.0 94 16 150/83 (105) 93 10/27/17 06:11 98.9 83 16 129/79 (96) 93 10/26/17 16:21 97.4 95 16 142/87 (105) 100 10/25/17 16:48 96.8 95 18 145/83 (103) 99 Room Air 10/25/17 06:06 97.8 83 16 104/67 (79) 94 Vital Signs Date Time Temp Pulse Resp B/P (MAP) Pulse Ox O2 Delivery O2 Flow Rate FiO2 10/27/17 16:37 98.0 94 16 150/83 (105) 93 10/25/17 16:48 Room Air I&O Intake and Output 10/27/17 07:00 Intake Total 820 ml Balance 820 ml Intake Oral 820 ml Labs: Laboratory Tests Test 10/27/17 06:58 10/27/17 08:39 10/27/17 12:11 10/27/17 16:55 White Blood Count 9.0 x10^3/uL (4.0-11.0) Red Blood Count 3.77 x10^6/uL (4.30-5.70) L Hemoglobin 12.8 g/dL (13.0-17.5) L Hematocrit 36.5 % (39.0-53.0) L Mean Corpuscular Volume 97 fL (79-100) Mean Corpuscular Hemoglobin 34 pg (25-35) Mean Corpuscular Hemoglobin Concent 35 g/dL (31-37) Red Cell Distribution Width 15.4 % (11.5-14.5) H Platelet Count 198 x10^3/uL (140-400) Neutrophils (%) (Auto) 78 % (31-73) H Lymphocytes (%) (Auto) 13 % (24-48) L Monocytes (%) (Auto) 9 % (0-9) Eosinophils (%) (Auto) 0 % (0-3) Basophils (%) (Auto) 0 % (0-3) Neutrophils # (Auto) 7.0 x10^3uL (1.8-7.7) Lymphocytes # (Auto) 1.2 x10^3/uL (1.0-4.8) Monocytes # (Auto) 0.8 x10^3/uL (0.0-1.1) Eosinophils # (Auto) 0.0 x10^3/uL (0.0-0.7) Basophils # (Auto) 0.0 x10^3/uL (0.0-0.2) Sodium Level 141 mmol/L (136-145) Potassium Level 3.7 mmol/L (3.5-5.1) Chloride Level 106 mmol/L (98-107) Carbon Dioxide Level 24 mmol/L (21-32) Anion Gap 11 (6-14) Blood Urea Nitrogen 31 mg/dL (8-26) H Creatinine 1.7 mg/dL (0.7-1.3) H Estimated GFR (Cockcroft-Gault) 39.9 BUN/Creatinine Ratio 18 (6-20) Glucose Level 141 mg/dL (70-99) H Calcium Level 9.2 mg/dL (8.5-10.1) Total Bilirubin 0.6 mg/dL (0.2-1.0) Aspartate Amino Transferase (AST) 25 U/L (15-37) Alanine Aminotransferase (ALT) 32 U/L (16-63) Alkaline Phosphatase 52 U/L (46-116) Total Protein 6.6 g/dL (6.4-8.2) Albumin 3.2 g/dL (3.4-5.0) L Albumin/Globulin Ratio 0.9 (1.0-1.7) L Valproic Acid Level 40 mcg/mL (50-100) L Valproic Acid Last Dose Date 10/26/17 Valproic Acid Last Dose Time 2100 Glucose (Fingerstick) 212 mg/dL (70-99) H 299 mg/dL (70-99) H 236 mg/dL (70-99) H Test 10/27/17 19:38 Glucose (Fingerstick) 326 mg/dL (70-99) H Current Medications: Meds: Current Medications Acetaminophen (Tylenol) 650 mg PRN Q6HRS PRN PO PAIN / TEMP Last administered on 10/24/17at 02:41; Start 10/23/17 at 19:45 Multi-Ingredient Ointment (Analgesic [place]) 1 jennifer PRN QID PRN TP MUSCLE PAIN; Start 10/23/17 at 19:45 Al Hydroxide/Mg Hydroxide (Mylanta Plus Xs) 15 ml PRN AFTMEALHC PRN PO DYSPEPSIA; Start 10/23/17 at 19:45 Magnesium Hydroxide (Milk Of Magnesia) 2,400 mg PRN QHS PRN PO CONSTIPATION; Start 10/23/17 at 19:45 Divalproex Sodium (Depakote Er) 250 mg BID PO Last administered on 10/24/17at 08 :12; Start 10/24/17 at 09:00; Stop 10/24/17 at 19:17; Status DC Cyanocobalamin (Vitamin B-12) 1,000 mcg WEEKLY IM ; Start 10/30/17 at 09:00 Dapsone (Aczone) 100 mg DAILY PO Last administered on 10/27/17at 08:22; Start at 09:00 Donepezil HCl (Aricept) 5 mg DAILY PO Last administered on 10/25/17at 07:58; Start 10/24/17 at 09:00; Stop 10/25/17 at 18:25; Status DC Insulin Glargine (Lantus) 15 units QHS SQ Last administered on 10/27/17at 20:42 ; Start 10/24/17 at 21:00 Prednisone (Prednisone) 40 mg DAILYWBKFT PO Last administered on 10/27/17at 08: 19; Start 10/24/17 at 08:00 Acyclovir (Zovirax) 400 mg Q12HR PO Last administered on 10/27/17at 20:52; Start 10/24/17 at 09:00 Magnesium Oxide (Magnesium Oxide) 400 mg DAILY PO Last administered on at 08:19; Start 10/24/17 at 09:00 Neomycin/ Polymyxin/ Bacitracin (Triple Antibiotic Ointment) 1 pkt BID TP Last administered on 10/26/17at 07:54; Start 10/24/17 at 09:00; Stop 10/26/17 at 13:18 ; Status DC Pantoprazole Sodium (Protonix) 40 mg DAILYAC PO Last administered on 10/27/17at 08:19; Start 10/24/17 at 07:30 Non-Formulary Medication (Posaconazole (Noxafil)) 100 mg DAILYWBKFT PO ; Start 10/24/17 at 08:00; Stop 10/24/17 at 08:42; Status DC Insulin Human Lispro (HumaLOG) 0-9 UNITS TIDWMEALHC SQ Last administered on at 20:43; Start 10/24/17 at 08:00 Dextrose 12.5 gm PRN Q15MIN PRN IV SEE COMMENTS; Start 10/23/17 at 22:30 Paroxetine HCl (Paxil) 20 mg DAILYWSUP PO Last administered on 10/27/17at 17:00 ; Start 10/24/17 at 17:00 Trazodone HCl (Desyrel) 50 mg PRN QHS PRN PO INSOMNIA, MAY REPEAT X1 Last administered on 10/27/17at 20:56; Start 10/24/17 at 18:45 Olanzapine (ZyPREXA ZYDIS) 2.5 mg PRN Q2HR PRN PO ANXIETY / AGITATION; Start at 18:45 Divalproex Sodium (Depakote Er) 375 mg BID PO ; Start 10/24/17 at 21:00; Stop at 07:46; Status DC Divalproex Sodium (Depakote Sprinkles) 375 mg BID PO Last administered on at 08:19; Start 10/25/17 at 09:00; Stop 10/27/17 at 19:45; Status DC Memantine (Namenda) 5 mg DAILY PO Last administered on 10/27/17at 08:19; Start 10/26/17 at 09:00 Donepezil HCl (Aricept) 10 mg DAILY PO Last administered on 10/27/17at 08:19; Start 10/26/17 at 09:00 Divalproex Sodium (Depakote Sprinkles) 500 mg BID PO Last administered on at 19:56; Start 10/27/17 at 21:00 Active Scripts Active Reported Paxil (Paroxetine Hcl) 20 Mg Tablet 20 Mg PO DAILYWSUP Ursodiol 500 Mg Tablet 500 Mg PO Lantus Solostar (Insulin Glargine,Hum.rec.anlog) 100 Unit/1 Ml Insuln.pen 15 Units SQ QHS Novolog Flexpen (Insulin Aspart) 100 Unit/1 Ml Insuln.pen 0-14 Units SQ Donepezil Hcl 5 Mg Tablet 5 Mg PO DAILY Dapsone 100 Mg Tablet 100 Mg PO DAILY Cyanocobalamin Injection (Cyanocobalamin (Vitamin B-12)) 1,000 Mcg/1 Ml Vial 1, 000 Mcg IJ WEEKLY Acyclovir 400 Mg Tablet 400 Mg PO Q12HR Magnesium (Magnesium Oxide) 400 Mg Capsule 400 Mg PO DAILY Prednisone 20 Mg Tablet 40 Mg PO DAILYWBKFT Noxafil (Posaconazole) 100 Mg Tablet.dr 100 Mg PO DAILYWBKFT Pantoprazole Sodium 40 Mg Tablet.dr 40 Mg PO DAILY Neosporin Ointment (Neomy Sulf/Bacitrac Zn/Poly) 28.3 Gm Oint...g. 1 Jennifer TP BID Depakote Er (Divalproex Sodium) 250 Mg Tab.er.24h 250 Mg PO BID I have reviewed the current psychotropics carefully including drug interactions. Risk benefit ratio favors no change other than as noted in my dictated progress note. Diagnosis: Problems: (1) Anxiety disorder (2) Lewy body dementia with behavioral disturbance (3) Impulse control disorder JAILENE SEO MD October 27, 2017 22:46
--- NOTE | 2017-10-27 23:17 | PDOC ---
Exam Note: Clifford Note: Please also refer to the separate dictated note~for this date of service dictated separately.~Patient seen individually. Discussed the patient with Nursing staff reviewed the chart.~Reviewed interim history and current functioning. Reviewed vital signs,~Labs/ Radiology~and current medications noted below. Continue current treatment with the changes noted in the dictated addendum note Assessment: Vital Signs: Vital Signs Date Time Temp Pulse Resp B/P (MAP) Pulse Ox O2 Delivery O2 Flow Rate FiO2 10/27/17 16:37 98.0 94 16 150/83 (105) 93 10/25/17 16:48 Room Air I&O Intake and Output 10/27/17 07:00 Intake Total 820 ml Balance 820 ml Intake Oral 820 ml Labs: Laboratory Tests Test 10/27/17 06:58 10/27/17 08:39 10/27/17 12:11 10/27/17 16:55 White Blood Count 9.0 x10^3/uL (4.0-11.0) Red Blood Count 3.77 x10^6/uL (4.30-5.70) L Hemoglobin 12.8 g/dL (13.0-17.5) L Hematocrit 36.5 % (39.0-53.0) L Mean Corpuscular Volume 97 fL (79-100) Mean Corpuscular Hemoglobin 34 pg (25-35) Mean Corpuscular Hemoglobin Concent 35 g/dL (31-37) Red Cell Distribution Width 15.4 % (11.5-14.5) H Platelet Count 198 x10^3/uL (140-400) Neutrophils (%) (Auto) 78 % (31-73) H Lymphocytes (%) (Auto) 13 % (24-48) L Monocytes (%) (Auto) 9 % (0-9) Eosinophils (%) (Auto) 0 % (0-3) Basophils (%) (Auto) 0 % (0-3) Neutrophils # (Auto) 7.0 x10^3uL (1.8-7.7) Lymphocytes # (Auto) 1.2 x10^3/uL (1.0-4.8) Monocytes # (Auto) 0.8 x10^3/uL (0.0-1.1) Eosinophils # (Auto) 0.0 x10^3/uL (0.0-0.7) Basophils # (Auto) 0.0 x10^3/uL (0.0-0.2) Sodium Level 141 mmol/L (136-145) Potassium Level 3.7 mmol/L (3.5-5.1) Chloride Level 106 mmol/L (98-107) Carbon Dioxide Level 24 mmol/L (21-32) Anion Gap 11 (6-14) Blood Urea Nitrogen 31 mg/dL (8-26) H Creatinine 1.7 mg/dL (0.7-1.3) H Estimated GFR (Cockcroft-Gault) 39.9 BUN/Creatinine Ratio 18 (6-20) Glucose Level 141 mg/dL (70-99) H Calcium Level 9.2 mg/dL (8.5-10.1) Total Bilirubin 0.6 mg/dL (0.2-1.0) Aspartate Amino Transferase (AST) 25 U/L (15-37) Alanine Aminotransferase (ALT) 32 U/L (16-63) Alkaline Phosphatase 52 U/L (46-116) Total Protein 6.6 g/dL (6.4-8.2) Albumin 3.2 g/dL (3.4-5.0) L Albumin/Globulin Ratio 0.9 (1.0-1.7) L Valproic Acid Level 40 mcg/mL (50-100) L Valproic Acid Last Dose Date 10/26/17 Valproic Acid Last Dose Time 2100 Glucose (Fingerstick) 212 mg/dL (70-99) H 299 mg/dL (70-99) H 236 mg/dL (70-99) H Test 10/27/17 19:38 Glucose (Fingerstick) 326 mg/dL (70-99) H Current Medications: Meds: Current Medications Acetaminophen (Tylenol) 650 mg PRN Q6HRS PRN PO PAIN / TEMP Last administered on 10/24/17at 02:41; Start 10/23/17 at 19:45 Multi-Ingredient Ointment (Analgesic [place]) 1 jennifer PRN QID PRN TP MUSCLE PAIN; Start 10/23/17 at 19:45 Al Hydroxide/Mg Hydroxide (Mylanta Plus Xs) 15 ml PRN AFTMEALHC PRN PO DYSPEPSIA; Start 10/23/17 at 19:45 Magnesium Hydroxide (Milk Of Magnesia) 2,400 mg PRN QHS PRN PO CONSTIPATION; Start 10/23/17 at 19:45 Divalproex Sodium (Depakote Er) 250 mg BID PO Last administered on 10/24/17at 08 :12; Start 10/24/17 at 09:00; Stop 10/24/17 at 19:17; Status DC Cyanocobalamin (Vitamin B-12) 1,000 mcg WEEKLY IM ; Start 10/30/17 at 09:00 Dapsone (Aczone) 100 mg DAILY PO Last administered on 10/27/17at 08:22; Start at 09:00 Donepezil HCl (Aricept) 5 mg DAILY PO Last administered on 10/25/17at 07:58; Start 10/24/17 at 09:00; Stop 10/25/17 at 18:25; Status DC Insulin Glargine (Lantus) 15 units QHS SQ Last administered on 10/27/17at 20:42 ; Start 10/24/17 at 21:00 Prednisone (Prednisone) 40 mg DAILYWBKFT PO Last administered on 10/27/17at 08: 19; Start 10/24/17 at 08:00 Acyclovir (Zovirax) 400 mg Q12HR PO Last administered on 10/27/17at 20:52; Start 10/24/17 at 09:00 Magnesium Oxide (Magnesium Oxide) 400 mg DAILY PO Last administered on at 08:19; Start 10/24/17 at 09:00 Neomycin/ Polymyxin/ Bacitracin (Triple Antibiotic Ointment) 1 pkt BID TP Last administered on 10/26/17at 07:54; Start 10/24/17 at 09:00; Stop 10/26/17 at 13:18 ; Status DC Pantoprazole Sodium (Protonix) 40 mg DAILYAC PO Last administered on 10/27/17at 08:19; Start 10/24/17 at 07:30 Non-Formulary Medication (Posaconazole (Noxafil)) 100 mg DAILYWBKFT PO ; Start 10/24/17 at 08:00; Stop 10/24/17 at 08:42; Status DC Insulin Human Lispro (HumaLOG) 0-9 UNITS TIDWMEALHC SQ Last administered on at 20:43; Start 10/24/17 at 08:00 Dextrose 12.5 gm PRN Q15MIN PRN IV SEE COMMENTS; Start 10/23/17 at 22:30 Paroxetine HCl (Paxil) 20 mg DAILYWSUP PO Last administered on 10/27/17at 17:00 ; Start 10/24/17 at 17:00 Trazodone HCl (Desyrel) 50 mg PRN QHS PRN PO INSOMNIA, MAY REPEAT X1 Last administered on 10/27/17at 20:56; Start 10/24/17 at 18:45 Olanzapine (ZyPREXA ZYDIS) 2.5 mg PRN Q2HR PRN PO ANXIETY / AGITATION; Start at 18:45 Divalproex Sodium (Depakote Er) 375 mg BID PO ; Start 10/24/17 at 21:00; Stop at 07:46; Status DC Divalproex Sodium (Depakote Sprinkles) 375 mg BID PO Last administered on at 08:19; Start 10/25/17 at 09:00; Stop 10/27/17 at 19:45; Status DC Memantine (Namenda) 5 mg DAILY PO Last administered on 10/27/17at 08:19; Start 10/26/17 at 09:00 Donepezil HCl (Aricept) 10 mg DAILY PO Last administered on 10/27/17at 08:19; Start 10/26/17 at 09:00 Divalproex Sodium (Depakote Sprinkles) 500 mg BID PO Last administered on at 19:56; Start 10/27/17 at 21:00 Active Scripts Active Reported Paxil (Paroxetine Hcl) 20 Mg Tablet 20 Mg PO DAILYWSUP Ursodiol 500 Mg Tablet 500 Mg PO Lantus Solostar (Insulin Glargine,Hum.rec.anlog) 100 Unit/1 Ml Insuln.pen 15 Units SQ QHS Novolog Flexpen (Insulin Aspart) 100 Unit/1 Ml Insuln.pen 0-14 Units SQ Donepezil Hcl 5 Mg Tablet 5 Mg PO DAILY Dapsone 100 Mg Tablet 100 Mg PO DAILY Cyanocobalamin Injection (Cyanocobalamin (Vitamin B-12)) 1,000 Mcg/1 Ml Vial 1, 000 Mcg IJ WEEKLY Acyclovir 400 Mg Tablet 400 Mg PO Q12HR Magnesium (Magnesium Oxide) 400 Mg Capsule 400 Mg PO DAILY Prednisone 20 Mg Tablet 40 Mg PO DAILYWBKFT Noxafil (Posaconazole) 100 Mg Tablet. 100 Mg PO DAILYWBKFT Pantoprazole Sodium 40 Mg Tablet. 40 Mg PO DAILY Neosporin Ointment (Neomy Sulf/Bacitrac Zn/Poly) 28.3 Gm Oint...g. 1 Jennifer TP BID Depakote Er (Divalproex Sodium) 250 Mg Tab.er.24h 250 Mg PO BID I have reviewed the current psychotropics carefully including drug interactions. Risk benefit ratio favors no change other than as noted in my dictated progress note. Diagnosis: Problems: (1) Anxiety disorder (2) Lewy body dementia with behavioral disturbance (3) Impulse control disorder JAILENE SEO MD October 27, 2017 23:17
[2017-10-28 06:03] VITALS: BP 135/89
[2017-10-28 07:30] VITALS: BP 120/82
[2017-10-28 07:35] VITALS: BP 108/81
[2017-10-28] MEDS ORDERED: LIDOCAINE 1% Multi-Dose 20 ML VIAL. ONE (07:51)
[2017-10-28] MEDS: INSULIN LISPRO 300 UNITS/3 ML INSULN.PEN. SQ SCH ×4 (08:00→19:34)
--- NOTE | 2017-10-28 10:28 | EKG ---
[address] [address] Test Date: 2017-10-28 Test Time: 10:24:45 Pat Name: MEKHI MCCARTY Department: Room: [address] [place] [address] Gender: M Trauma Nurse: : 1945 Requested By: JAILENE SEO Order Number: [id number] Reading MD: Albert Garcia MD Measurements Intervals [place] Rate: 95 P: 36 ND: 134 QRS: -31 QRSD: 86 T: 36 QT: 350 QTc: 443 Interpretive Statements SINUS RHYTHM ABNORMAL LEFT AXIS DEVIATION R-S TRANSITION ZONE IN V LEADS DISPLACED TO THE LEFT QRS(T) CONTOUR ABNORMALITY CONSISTENT WITH INFERIOR INFARCT PROBABLY OLD ABNORMAL ECG RI6.01 No previous ECG available for comparison Electronically Signed On 11-25-2017 22:36:42 CDT by Albert Garcia MD
--- NOTE | 2017-10-28 11:16 | RAD ---
CT scan of the head without contrast 10/28/2017 Clinical History: Headache and dizziness post fall. Technique: Unenhanced, contiguous, 5 mm axial sections were obtained through the head. One or more of the following individualized dose reduction techniques were utilized for this study: 1. Automated exposure control. 2. Adjustment of the mA and/or kV according to patient size. 3. Use of iterative reconstruction technique. Findings: Comparison study is dated 10/24/2017. There is generalized parenchymal atrophy. Areas of decreased attenuation are seen within the periventricular and subcortical white matter of both cerebral hemispheres consistent with areas of small vessel ischemic disease. No acute parenchymal abnormality is seen. No extra-axial fluid collection is noted. No skull fracture is seen. Soft tissue swelling seen involving the frontal scalp. Impression: No acute intracranial abnormality is seen. CT scan of the facial bones without contrast 10/28/2017 CLINICAL HISTORY: Fall on face earlier today with facial pain. TECHNIQUE: Unenhanced, contiguous, 0.625 mm axial sections were obtained through the facial bones and orbits. 3 mm reconstructed sagittal, axial and coronal images were obtained. One or more of the following individualized dose reduction techniques were utilized for this study: 1. Automated exposure control. 2. Adjustment of the mA and/or kV according to patient size. 3. Use of iterative reconstruction technique. FINDINGS: Soft tissue swelling seen involving the right frontal scalp. No facial bone fracture is seen. Both orbits are intact. A 1.3 cm mucous retention cyst is seen involving the left maxillary sinus. Mild mucosal thickening in seen involving the inferior aspect of the right maxillary sinus. No air-fluid level is seen involving the paranasal sinuses. Moderate degenerative changes are seen involving both TMJs. IMPRESSION: No facial bone fracture is seen. Electronically signed by: Matt Barakat MD (10/28/2017 11:13 AM) [facility]
[2017-10-28] MEDS: MAGNESIUM OXIDE 400 MG TABLET PO SCH (11:40)
[2017-10-28] MEDS: DONEPEZIL HCL 10 MG TABLET PO SCH (11:41)
[2017-10-28] MEDS: predniSONE 20 MG TABLET PO SCH (11:41)
[2017-10-28] MEDS: PANTOPRAZOLE 40 MG TABLET. PO SCH (11:41)
[2017-10-28] MEDS: MEMANTINE 5 MG TABLET. PO SCH (11:41)
[2017-10-28] MEDS: DAPSONE 100 MG TABLET PO SCH (11:42)
[2017-10-28] MEDS: ACYCLOVIR 200 MG CAPSULE PO SCH ×2 (11:43→19:36)
[2017-10-28 15:40] VITALS: BP 106/67
[2017-10-28] MEDS: PARoxetine 20 MG TABLET PO SCH (17:04)
[2017-10-28] MEDS: ACETAMINOPHEN 325 MG TABLET PO PRN (18:48)
[2017-10-28] MEDS: INSULIN GLARGINE 300 UNITS/3 ML INSULN.PEN. SQ SCH (19:35)
[2017-10-28] MEDS: DIVALPROEX ER 500 MG TAB.ER.24H PO SCH (19:38)
[2017-10-28] MEDS ORDERED: INSULIN GLARGINE 300 UNITS/3 ML INSULN.PEN. SQ ONE (19:45)
--- NOTE | 2017-10-28 20:48 | PDOC ---
Exam Note: Clifford Note: Please also refer to the separate dictated note~for this date of service dictated separately.~Patient seen individually. Discussed the patient with Nursing staff reviewed the chart.~Reviewed interim history and current functioning. Reviewed vital signs,~Labs/ Radiology~and current medications noted below. Continue current treatment with the changes noted in the dictated addendum note Assessment: Vital Signs: Vital Signs Date Time Temp Pulse Resp B/P (MAP) Pulse Ox O2 Delivery O2 Flow Rate FiO2 10/28/17 15:40 97.2 98 19 106/67 (80) 94 10/25/17 16:48 Room Air I&O Intake and Output 10/28/17 07:00 Intake Total 1200 ml Balance 1200 ml Intake Oral 1200 ml Labs: Laboratory Tests Test 10/28/17 07:25 10/28/17 11:27 10/28/17 16:34 10/28/17 19:14 Glucose (Fingerstick) 119 mg/dL (70-99) H 242 mg/dL (70-99) H 482 mg/dL (70-99) H 512 mg/dL (70-99) *H Current Medications: Meds: Current Medications Acetaminophen (Tylenol) 650 mg PRN Q6HRS PRN PO PAIN / TEMP Last administered on 10/28/17at 18:48; Start 10/23/17 at 19:45 Multi-Ingredient Ointment (Analgesic [place]) 1 jennifer PRN QID PRN TP MUSCLE PAIN; Start 10/23/17 at 19:45 Al Hydroxide/Mg Hydroxide (Mylanta Plus Xs) 15 ml PRN AFTMEALHC PRN PO DYSPEPSIA; Start 10/23/17 at 19:45 Magnesium Hydroxide (Milk Of Magnesia) 2,400 mg PRN QHS PRN PO CONSTIPATION; Start 10/23/17 at 19:45 Divalproex Sodium (Depakote Er) 250 mg BID PO Last administered on 10/24/17at 08 :12; Start 10/24/17 at 09:00; Stop 10/24/17 at 19:17; Status DC Cyanocobalamin (Vitamin B-12) 1,000 mcg WEEKLY IM ; Start 10/30/17 at 09:00 Dapsone (Aczone) 100 mg DAILY PO Last administered on 10/28/17at 11:42; Start at 09:00 Donepezil HCl (Aricept) 5 mg DAILY PO Last administered on 10/25/17at 07:58; Start 10/24/17 at 09:00; Stop 10/25/17 at 18:25; Status DC Insulin Glargine (Lantus) 15 units QHS SQ Last administered on 10/28/17at 19:35 ; Start 10/24/17 at 21:00 Prednisone (Prednisone) 40 mg DAILYWBKFT PO Last administered on 10/28/17at 11: 41; Start 10/24/17 at 08:00 Acyclovir (Zovirax) 400 mg Q12HR PO Last administered on 10/28/17 19:36; Start 10/24/17 at 09:00 Magnesium Oxide (Magnesium Oxide) 400 mg DAILY PO Last administered on at 11:40; Start 10/24/17 at 09:00 Neomycin/ Polymyxin/ Bacitracin (Triple Antibiotic Ointment) 1 pkt BID TP Last administered on 10/26/17at 07:54; Start 10/24/17 at 09:00; Stop 10/26/17 at 13:18 ; Status DC Pantoprazole Sodium (Protonix) 40 mg DAILYAC PO Last administered on 10/28/17 11:41; Start 10/24/17 at 07:30 Non-Formulary Medication (Posaconazole (Noxafil)) 100 mg DAILYWBKFT PO ; Start 10/24/17 at 08:00; Stop 10/24/17 at 08:42; Status DC Insulin Human Lispro (HumaLOG) 0-9 UNITS TIDWMEALHC SQ Last administered on at 19:34; Start 10/24/17 at 08:00 Dextrose 12.5 gm PRN Q15MIN PRN IV SEE COMMENTS; Start 10/23/17 at 22:30 Paroxetine HCl (Paxil) 20 mg DAILYWSUP PO Last administered on 10/28/17at 17:04 ; Start 10/24/17 at 17:00 Trazodone HCl (Desyrel) 50 mg PRN QHS PRN PO INSOMNIA Last administered on 10/27at 20:56; Start 10/24/17 at 18:45 Olanzapine (ZyPREXA ZYDIS) 2.5 mg PRN Q2HR PRN PO ANXIETY / AGITATION; Start at 18:45 Divalproex Sodium (Depakote Er) 375 mg BID PO ; Start 10/24/17 at 21:00; Stop at 07:46; Status DC Divalproex Sodium (Depakote Sprinkles) 375 mg BID PO Last administered on at 08:19; Start 10/25/17 at 09:00; Stop 10/27/17 at 19:45; Status DC Memantine (Namenda) 5 mg DAILY PO Last administered on 10/28/17at 11:41; Start 10/26/17 at 09:00 Donepezil HCl (Aricept) 10 mg DAILY PO Last administered on 10/28/17at 11:41; Start 10/26/17 at 09:00 Divalproex Sodium (Depakote Sprinkles) 500 mg BID PO Last administered on at 19:56; Start 10/27/17 at 21:00; Stop 10/28/17 at 09:50; Status DC Lidocaine HCl 20 ml STK-MED ONCE .ROUTE ; Start 10/28/17 at 07:51; Stop at 07:52; Status DC Divalproex Sodium (Depakote Er) 1,000 mg QHS PO Last administered on 10/28/17at 19:38; Start 10/28/17 at 21:00 Insulin Glargine (Lantus) 10 units 1X ONCE SQ Last administered on 10/28/17at 19:36; Start 10/28/17 at 19:45; Stop 10/28/17 at 19:46; Status DC Active Scripts Active Reported Paxil (Paroxetine Hcl) 20 Mg Tablet 20 Mg PO DAILYWSUP Ursodiol 500 Mg Tablet 500 Mg PO Lantus Solostar (Insulin Glargine,Hum.rec.anlog) 100 Unit/1 Ml Insuln.pen 15 Units SQ QHS Novolog Flexpen (Insulin Aspart) 100 Unit/1 Ml Insuln.pen 0-14 Units SQ Donepezil Hcl 5 Mg Tablet 5 Mg PO DAILY Dapsone 100 Mg Tablet 100 Mg PO DAILY Cyanocobalamin Injection (Cyanocobalamin (Vitamin B-12)) 1,000 Mcg/1 Ml Vial 1, 000 Mcg IJ WEEKLY Acyclovir 400 Mg Tablet 400 Mg PO Q12HR Magnesium (Magnesium Oxide) 400 Mg Capsule 400 Mg PO DAILY Prednisone 20 Mg Tablet 40 Mg PO DAILYWBKFT Noxafil (Posaconazole) 100 Mg Tablet. 100 Mg PO DAILYWBKFT Pantoprazole Sodium 40 Mg Tablet. 40 Mg PO DAILY Neosporin Ointment (Neomy Sulf/Bacitrac Zn/Poly) 28.3 Gm Oint...g. 1 Jennifer TP BID Depakote Er (Divalproex Sodium) 250 Mg Tab.er.24h 250 Mg PO BID I have reviewed the current psychotropics carefully including drug interactions. Risk benefit ratio favors no change other than as noted in my dictated progress note. Diagnosis: Problems: (1) Anxiety disorder (2) Lewy body dementia with behavioral disturbance (3) Impulse control disorder JAILENE SEO MD October 28, 2017 20:48
[2017-10-29 06:11] VITALS: BP 136/86
--- NOTE | 2017-10-29 06:50 | PN ---
DATE: 10/26/2017 This late entry 10/26/2017 covers elements not covered in my initial note 10/26/2017. Met with the patient in the evening. Overall, the patient remains somewhat obsessed regarding discharge plans, I processed this with him. He slept poorly the previous evening, irritable in the evening. Labs to be drawn. REVIEW OF SYSTEMS: No CV, , pulmonary, eye system symptoms on review. He essentially minimizes any symptoms. MENTAL STATUS EXAM: Oriented to himself and situation. Speech moderate latency, coherent. Abstraction fair, computation impaired, language function intact. Attention span short. Short term memory is impaired. LABORATORY DATA: Reviewed. IMPRESSION: Unchanged from initial note. Valproic acid level is 23, subtherapeutic. PLAN: Continue current psychotropics. Adjust Depakote as clinically indicated. We received some information from Dr. Hutchison's office indicating that they are not diagnosed Lewy body dementia. In fact, the patient was then diagnosed initially with Lewy body at [facility], per the information available to us. MAN Raj SEO MD DR: DENA/marlon JOB#: [id number] / [id number]
[2017-10-29] MEDS: INSULIN LISPRO 300 UNITS/3 ML INSULN.PEN. SQ SCH ×4 (08:00→20:12)
[2017-10-29] MEDS: DAPSONE 100 MG TABLET PO SCH (09:48)
[2017-10-29] MEDS: PANTOPRAZOLE 40 MG TABLET. PO SCH (09:49)
[2017-10-29] MEDS: predniSONE 20 MG TABLET PO SCH (09:49)
[2017-10-29] MEDS: MEMANTINE 5 MG TABLET. PO SCH (09:49)
[2017-10-29] MEDS: ACYCLOVIR 200 MG CAPSULE PO SCH ×2 (09:49→20:04)
[2017-10-29] MEDS: MAGNESIUM OXIDE 400 MG TABLET PO SCH (09:50)
[2017-10-29] MEDS: DONEPEZIL HCL 10 MG TABLET PO SCH (09:50)
--- NOTE | 2017-10-29 13:02 | PN ---
DATE: 10/27/2017 PSYCHIATRIC PROGRESS NOTE This late entry 10/27/2017 covers elements not covered in my initial note 10/27/2017. SUBJECTIVE: I met with the patient in the evening. Per nursing report, the patient has had a better day. He is still somewhat anxious, minimizes his memory problems, gets irritable, but less so than before. REVIEW OF SYSTEMS: No CV, , pulmonary, eye, ENT system symptoms on review. MENTAL STATUS EXAM: Oriented to himself, at times situation. Speech is coherent, has some latency. Abstraction fair, computation impaired, language function intact, attention span short. Mood and affect somewhat anxious, labile at times. Short-term memory is impaired. LABORATORIES: Reviewed. IMPRESSION: Major neurocognitive disorder, early possibly Lewy body with delusion, depression. Rest unchanged. PLAN: Valproic acid level is 40, subtherapeutic. We will increase the Depakote Sprinkles from 375 b.i.d. to 500 b.i.d. Check CBC, CMP, valproic acid level in 3 days. Continue Aricept, Paxil, trazodone at current dosage. MAN Raj SEO MD DR: DENA/marlon JOB#: [id number] / [id number]
--- NOTE | 2017-10-29 14:55 | PN ---
DATE: 10/28/2017 PSYCHIATRIC PROGRESS NOTE This note covers elements not covered in my initial note 10/28/2017. SUBJECTIVE: I met with the patient in the evening and had received a call from the nursing staff early in the morning to update me. The patient got out of his bed and had a fall. He has had sutures on his hand and Steri-Strips on the skull laceration. We will also do an EKG to make sure there is no cardiac cause for the above fall. REVIEW OF SYSTEMS: Ambulation somewhat impaired. No CV, , pulmonary, eye system symptoms on review. MENTAL STATUS EXAM: Oriented to himself and situation. Speech coherent. He is very paranoid, monosyllabic, somewhat controlling in his responses. Attention span short, language function intact. Mood and affect somewhat depressed. No suicidal or homicidal ideation. LABORATORIES: Valproic acid level is 40 on current dosage. CBC, CMP, valproic acid level are being repeated 10/30/2017. PLAN: Continue Aricept, Depakote, which has been changed to Depakote ER 1000 mg at bedtime. Maintain Paxil 20 mg a day, trazodone and Zyprexa p.r.n. JAILENE SEO MD DR: DENA/marlon JOB#: [id number] / [id number]
[2017-10-29 16:19] VITALS: BP 133/85
[2017-10-29] MEDS: PARoxetine 20 MG TABLET PO SCH (16:58)
[2017-10-29] MEDS: DIVALPROEX ER 500 MG TAB.ER.24H PO SCH (20:04)
[2017-10-29] MEDS: INSULIN GLARGINE 300 UNITS/3 ML INSULN.PEN. SQ SCH (20:10)
--- NOTE | 2017-10-29 20:45 | PDOC ---
Exam Note: Clifford Note: Please also refer to the separate dictated note~for this date of service dictated separately.~Patient seen individually. Discussed the patient with Nursing staff reviewed the chart.~Reviewed interim history and current functioning. Reviewed vital signs,~Labs/ Radiology~and current medications noted below. Continue current treatment with the changes noted in the dictated addendum note Assessment: Vital Signs: Vital Signs Date Time Temp Pulse Resp B/P (MAP) Pulse Ox O2 Delivery O2 Flow Rate FiO2 10/29/17 16:19 98.1 94 16 133/85 (101) 95 10/29/17 06:11 Room Air I&O Intake and Output 10/29/17 07:00 Intake Total 960 ml Balance 960 ml Intake Oral 960 ml Labs: Laboratory Tests Test 10/28/17 22:10 10/29/17 08:03 10/29/17 11:33 10/29/17 16:34 Glucose (Fingerstick) 337 mg/dL (70-99) H 123 mg/dL (70-99) H 178 mg/dL (70-99) H 314 mg/dL (70-99) H Test 10/29/17 19:06 Glucose (Fingerstick) 336 mg/dL (70-99) H Current Medications: Meds: Current Medications Acetaminophen (Tylenol) 650 mg PRN Q6HRS PRN PO PAIN / TEMP Last administered on 10/28/17at 18:48; Start 10/23/17 at 19:45 Multi-Ingredient Ointment (Analgesic [place]) 1 jennifer PRN QID PRN TP MUSCLE PAIN; Start 10/23/17 at 19:45 Al Hydroxide/Mg Hydroxide (Mylanta Plus Xs) 15 ml PRN AFTMEALHC PRN PO DYSPEPSIA; Start 10/23/17 at 19:45 Magnesium Hydroxide (Milk Of Magnesia) 2,400 mg PRN QHS PRN PO CONSTIPATION; Start 10/23/17 at 19:45 Divalproex Sodium (Depakote Er) 250 mg BID PO Last administered on 10/24/17at 08 :12; Start 10/24/17 at 09:00; Stop 10/24/17 at 19:17; Status DC Cyanocobalamin (Vitamin B-12) 1,000 mcg WEEKLY IM ; Start 10/30/17 at 09:00 Dapsone (Aczone) 100 mg DAILY PO Last administered on 10/29/17at 09:48; Start at 09:00 Donepezil HCl (Aricept) 5 mg DAILY PO Last administered on 10/25/17at 07:58; Start 10/24/17 at 09:00; Stop 10/25/17 at 18:25; Status DC Insulin Glargine (Lantus) 15 units QHS SQ Last administered on 10/29/17at 20:10 ; Start 10/24/17 at 21:00 Prednisone (Prednisone) 40 mg DAILYWBKFT PO Last administered on 10/29/17at 09: 49; Start 10/24/17 at 08:00 Acyclovir (Zovirax) 400 mg Q12HR PO Last administered on 10/29/17at 20:04; Start 10/24/17 at 09:00 Magnesium Oxide (Magnesium Oxide) 400 mg DAILY PO Last administered on at 09:50; Start 10/24/17 at 09:00 Neomycin/ Polymyxin/ Bacitracin (Triple Antibiotic Ointment) 1 pkt BID TP Last administered on 10/26/17at 07:54; Start 10/24/17 at 09:00; Stop 10/26/17 at 13:18 ; Status DC Pantoprazole Sodium (Protonix) 40 mg DAILYAC PO Last administered on 10/29/17at 09:49; Start 10/24/17 at 07:30 Non-Formulary Medication (Posaconazole (Noxafil)) 100 mg DAILYWBKFT PO ; Start 10/24/17 at 08:00; Stop 10/24/17 at 08:42; Status DC Insulin Human Lispro (HumaLOG) 0-9 UNITS TIDWMEALHC SQ Last administered on at 20:12; Start 10/24/17 at 08:00 Dextrose 12.5 gm PRN Q15MIN PRN IV SEE COMMENTS; Start 10/23/17 at 22:30 Paroxetine HCl (Paxil) 20 mg DAILYWSUP PO Last administered on 10/29/17at 16:58 ; Start 10/24/17 at 17:00 Trazodone HCl (Desyrel) 50 mg PRN QHS PRN PO INSOMNIA Last administered on 10/27at 20:56; Start 10/24/17 at 18:45 Olanzapine (ZyPREXA ZYDIS) 2.5 mg PRN Q2HR PRN PO ANXIETY / AGITATION; Start at 18:45 Divalproex Sodium (Depakote Er) 375 mg BID PO ; Start 10/24/17 at 21:00; Stop at 07:46; Status DC Divalproex Sodium (Depakote Sprinkles) 375 mg BID PO Last administered on at 08:19; Start 10/25/17 at 09:00; Stop 10/27/17 at 19:45; Status DC Memantine (Namenda) 5 mg DAILY PO Last administered on 10/29/17at 09:49; Start 10/26/17 at 09:00 Donepezil HCl (Aricept) 10 mg DAILY PO Last administered on 10/29/17at 09:50; Start 10/26/17 at 09:00 Divalproex Sodium (Depakote Sprinkles) 500 mg BID PO Last administered on at 19:56; Start 10/27/17 at 21:00; Stop 10/28/17 at 09:50; Status DC Lidocaine HCl 20 ml STK-MED ONCE .ROUTE ; Start 10/28/17 at 07:51; Stop at 07:52; Status DC Divalproex Sodium (Depakote Er) 1,000 mg QHS PO Last administered on 10/29/17at 20:04; Start 10/28/17 at 21:00 Insulin Glargine (Lantus) 10 units 1X ONCE SQ Last administered on 10/28/17at 19:36; Start 10/28/17 at 19:45; Stop 10/28/17 at 19:46; Status DC Active Scripts Active Reported Paxil (Paroxetine Hcl) 20 Mg Tablet 20 Mg PO DAILYWSUP Ursodiol 500 Mg Tablet 500 Mg PO Lantus Solostar (Insulin Glargine,Hum.rec.anlog) 100 Unit/1 Ml Insuln.pen 15 Units SQ QHS Novolog Flexpen (Insulin Aspart) 100 Unit/1 Ml Insuln.pen 0-14 Units SQ Donepezil Hcl 5 Mg Tablet 5 Mg PO DAILY Dapsone 100 Mg Tablet 100 Mg PO DAILY Cyanocobalamin Injection (Cyanocobalamin (Vitamin B-12)) 1,000 Mcg/1 Ml Vial 1, 000 Mcg IJ WEEKLY Acyclovir 400 Mg Tablet 400 Mg PO Q12HR Magnesium (Magnesium Oxide) 400 Mg Capsule 400 Mg PO DAILY Prednisone 20 Mg Tablet 40 Mg PO DAILYWBKFT Noxafil (Posaconazole) 100 Mg Tablet.dr 100 Mg PO DAILYWBKFT Pantoprazole Sodium 40 Mg Tablet.dr 40 Mg PO DAILY Neosporin Ointment (Neomy Sulf/Bacitrac Zn/Poly) 28.3 Gm Oint...g. 1 Jennifer TP BID Depakote Er (Divalproex Sodium) 250 Mg Tab.er.24h 250 Mg PO BID I have reviewed the current psychotropics carefully including drug interactions. Risk benefit ratio favors no change other than as noted in my dictated progress note. Diagnosis: Problems: (1) Anxiety disorder (2) Lewy body dementia with behavioral disturbance (3) Impulse control disorder JAILENE SEO MD October 29, 2017 20:45
--- NOTE | 2017-10-30 03:58 | PN ---
DATE: 10/29/2017 SUBJECTIVE: The patient was seen today, met with the staff, chart reviewed and also covering for Dr. Loving. Staff reports that she had 3 falls in the past 5 days. The patient is under close supervision. The patient is also receiving physical therapy at this time. The patient continues to be labile, stays in bed and does become aggressive at times. The patient also has multiple physical complaints. OBSERVATION: VITAL SIGNS: Temperature 97.5, blood pressure 136/86, pulse 92, respirations 16, O2 sat 94%. Slept about 7 hours last night. The patient currently not having any side effects to the medications. CURRENT MEDICATIONS INCLUDE: Depakote 1000 mg at night, Aricept 10 mg daily, Namenda 5 mg daily, olanzapine 2.5 mg q. 2 hours p.r.n., trazodone 50 mg at night p.r.n., Paxil 20 mg at night. The patient is also on Protonix, prednisone, insulin, dapsone, acyclovir, and B12 monthly injections. The patient's lab reviewed. The patient's blood sugar elevated to 178. 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 PLAN: Continue with the medications. We will monitor for any side effects. ELKE SANCHEZ MD DR: VENKAT/marlon JOB#: [id number] / [id number]
[2017-10-30 06:27] VITALS: BP 115/76
[2017-10-30] MEDS: INSULIN LISPRO 300 UNITS/3 ML INSULN.PEN. SQ SCH ×4 (08:00→20:09)
[2017-10-30] MEDS: DONEPEZIL HCL 10 MG TABLET PO SCH (08:53)
[2017-10-30] MEDS: predniSONE 20 MG TABLET PO SCH (08:53)
[2017-10-30] MEDS: MEMANTINE 5 MG TABLET. PO SCH (08:53)
[2017-10-30] MEDS: MAGNESIUM OXIDE 400 MG TABLET PO SCH (08:53)
[2017-10-30] MEDS: ACYCLOVIR 200 MG CAPSULE PO SCH ×2 (08:59→20:04)
[2017-10-30] MEDS: CYANOCOBALAMIN (VITAMIN B-12) 1,000 MCG/ML VIAL IM SCH (08:59)
[2017-10-30] MEDS: DAPSONE 100 MG TABLET PO SCH (08:59)
[2017-10-30] MEDS: PANTOPRAZOLE 40 MG TABLET. PO SCH (09:00)
[2017-10-30 09:41] LABS: BASO % 0 % (0-3); EOS % 0 % (0-3); HEMATOCRIT 37.4 % (39.0-53.0); HEMOGLOBIN 12.6 g/dL (13.0-17.5); LYMPH # 1.6 x10^3/uL (1.0-4.8); LYMPH % 14 % (24-48); MEAN CORPUSCULAR HEMOGLOBIN 33 pg (25-35); MEAN CORPUSCULAR HGB CONC 34 g/dL (31-37); MEAN CORPUSCULAR VOLUME 99 fL (79-100); MONO # 1.1 x10^3/uL (0.0-1.1); MONO % 9 % (0-9); NEUT # 9.1 x10^3uL (1.8-7.7); NEUT % 77 % (31-73); PLATELET COUNT 194 x10^3/uL (140-400); RED BLOOD COUNT 3.78 x10^6/uL (4.30-5.70); RED CELL DISTRIBUTION WIDTH 15.8 % (11.5-14.5); WHITE BLOOD COUNT 11.7 x10^3/uL (4.0-11.0)
[2017-10-30 10:08] LABS: ALBUMIN/GLOBULIN RATIO 0.9 (1.0-1.7); CALCIUM 8.9 mg/dL (8.5-10.1); CREATININE 1.8 mg/dL (0.7-1.3); GFR 37.4; TOTAL BILIRUBIN 0.9 mg/dL (0.2-1.0); TOTAL PROTEIN 6.5 g/dL (6.4-8.2)
[2017-10-30 10:16] LABS: VAL ACID 52 mcg/mL (50-100)
[2017-10-30 10:44] LABS: % BANDS 4 % (0-9); % LYMPHS 11 % (24-48); % METAS 1 % (0-0); % MONOS 8 % (0-10); % SEGS 76 % (35-66); PLT ESTIMATE ADEQUATE (ADEQUATE)
[2017-10-30 10:45] LABS: ANISOCYTOSIS SLIGHT; POLYCHROMASIA SLIGHT; SCHISTOCYTES OCC
[2017-10-30 16:43] VITALS: BP 99/64
[2017-10-30] MEDS: PARoxetine 20 MG TABLET PO SCH (17:27)
[2017-10-30] MEDS: DIVALPROEX ER 500 MG TAB.ER.24H PO SCH (20:04)
[2017-10-30] MEDS: INSULIN GLARGINE 300 UNITS/3 ML INSULN.PEN. SQ SCH (20:08)
[2017-10-31 06:36] VITALS: BP 114/65
[2017-10-31] MEDS: INSULIN LISPRO 300 UNITS/3 ML INSULN.PEN. SQ SCH ×4 (08:00→20:00)
[2017-10-31] MEDS: PANTOPRAZOLE 40 MG TABLET. PO SCH (08:09)
[2017-10-31] MEDS: DONEPEZIL HCL 10 MG TABLET PO SCH (08:09)
[2017-10-31] MEDS: MEMANTINE 5 MG TABLET. PO SCH (08:09)
[2017-10-31] MEDS: MAGNESIUM OXIDE 400 MG TABLET PO SCH (08:09)
[2017-10-31] MEDS: predniSONE 20 MG TABLET PO SCH (08:09)
[2017-10-31] MEDS: DAPSONE 100 MG TABLET PO SCH (08:12)
[2017-10-31] MEDS: ACYCLOVIR 200 MG CAPSULE PO SCH ×2 (08:12→19:57)
[2017-10-31] MEDS: busPIRone 5 MG TABLET. PO SCH ×3 (08:13→17:47)
[2017-10-31 16:43] VITALS: BP 113/75
[2017-10-31] MEDS: PARoxetine 20 MG TABLET PO SCH (17:47)
[2017-10-31] MEDS: DIVALPROEX ER 500 MG TAB.ER.24H PO SCH (19:57)
[2017-10-31] MEDS: traZODone 50 MG TABLET. PO SCH (19:58)
--- NOTE | 2017-10-31 19:58 | PDOC ---
Exam Note: Clifford Note: Late entry for date of service October 30, 2017. Please also refer to the separate dictated note~for this date of service dictated separately.~Patient seen individually. Discussed the patient with Nursing staff reviewed the chart.~ Reviewed interim history and current functioning. Reviewed vital signs,~Labs/ Radiology~and current medications noted below. Continue current treatment with the changes noted in the dictated addendum note Assessment: Vital Signs: VS - Last 72 Hours, by Label Date Time Temp Pulse Resp B/P (MAP) Pulse Ox O2 Delivery O2 Flow Rate FiO2 10/31/17 16:43 98.6 104 16 113/75 (88) 94 10/31/17 06:36 97.9 86 20 114/65 (81) 92 10/30/17 16:43 98.5 104 18 99/64 (76) 95 Room Air 10/30/17 06:27 97.0 94 20 115/76 (89) 94 10/29/17 16:19 98.1 94 16 133/85 (101) 95 10/29/17 06:11 97.5 73 16 136/86 (103) 94 Room Air Vital Signs Date Time Temp Pulse Resp B/P (MAP) Pulse Ox O2 Delivery O2 Flow Rate FiO2 10/31/17 16:43 98.6 104 16 113/75 (88) 94 10/30/17 16:43 Room Air I&O Intake and Output 10/31/17 07:00 Intake Total 960 ml Balance 960 ml Intake Oral 960 ml # Bowel Movements 1 Labs: Laboratory Tests Test 10/31/17 07:26 10/31/17 11:08 10/31/17 16:07 10/31/17 19:26 Glucose (Fingerstick) 136 mg/dL (70-99) H 189 mg/dL (70-99) H 344 mg/dL (70-99) H 304 mg/dL (70-99) H Current Medications: Meds: Current Medications Acetaminophen (Tylenol) 650 mg PRN Q6HRS PRN PO PAIN / TEMP Last administered on 10/28/17at 18:48; Start 10/23/17 at 19:45 Multi-Ingredient Ointment (Analgesic [place]) 1 jennifer PRN QID PRN TP MUSCLE PAIN; Start 10/23/17 at 19:45 Al Hydroxide/Mg Hydroxide (Mylanta Plus Xs) 15 ml PRN AFTMEALHC PRN PO DYSPEPSIA; Start 10/23/17 at 19:45 Magnesium Hydroxide (Milk Of Magnesia) 2,400 mg PRN QHS PRN PO CONSTIPATION; Start 10/23/17 at 19:45 Divalproex Sodium (Depakote Er) 250 mg BID PO Last administered on 10/24/17at 08 :12; Start 10/24/17 at 09:00; Stop 10/24/17 at 19:17; Status DC Cyanocobalamin (Vitamin B-12) 1,000 mcg WEEKLY IM Last administered on at 08:59; Start 10/30/17 at 09:00 Dapsone (Aczone) 100 mg DAILY PO Last administered on 10/31/17at 08:12; Start at 09:00 Donepezil HCl (Aricept) 5 mg DAILY PO Last administered on 10/25/17at 07:58; Start 10/24/17 at 09:00; Stop 10/25/17 at 18:25; Status DC Insulin Glargine (Lantus) 15 units QHS SQ Last administered on 10/30/17at 20:08 ; Start 10/24/17 at 21:00 Prednisone (Prednisone) 40 mg DAILYWBKFT PO Last administered on 10/31/17at 08: 09; Start 10/24/17 at 08:00 Acyclovir (Zovirax) 400 mg Q12HR PO Last administered on 10/31/17at 08:12; Start 10/24/17 at 09:00 Magnesium Oxide (Magnesium Oxide) 400 mg DAILY PO Last administered on at 08:09; Start 10/24/17 at 09:00 Neomycin/ Polymyxin/ Bacitracin (Triple Antibiotic Ointment) 1 pkt BID TP Last administered on 10/26/17at 07:54; Start 10/24/17 at 09:00; Stop 10/26/17 at 13:18 ; Status DC Pantoprazole Sodium (Protonix) 40 mg DAILYAC PO Last administered on 10/31/17at 08:09; Start 10/24/17 at 07:30 Non-Formulary Medication (Posaconazole (Noxafil)) 100 mg DAILYWBKFT PO ; Start 10/24/17 at 08:00; Stop 10/24/17 at 08:42; Status DC Insulin Human Lispro (HumaLOG) 0-9 UNITS TIDWMEALHC SQ Last administered on at 17:49; Start 10/24/17 at 08:00 Dextrose 12.5 gm PRN Q15MIN PRN IV SEE COMMENTS; Start 10/23/17 at 22:30 Paroxetine HCl (Paxil) 20 mg DAILYWSUP PO Last administered on 10/31/17at 17:47 ; Start 10/24/17 at 17:00 Trazodone HCl (Desyrel) 50 mg PRN QHS PRN PO INSOMNIA Last administered on 10/27at 20:56; Start 10/24/17 at 18:45; Stop 10/31/17 at 18:42; Status DC Olanzapine (ZyPREXA ZYDIS) 2.5 mg PRN Q2HR PRN PO ANXIETY / AGITATION; Start at 18:45 Divalproex Sodium (Depakote Er) 375 mg BID PO ; Start 10/24/17 at 21:00; Stop at 07:46; Status DC Divalproex Sodium (Depakote Sprinkles) 375 mg BID PO Last administered on at 08:19; Start 10/25/17 at 09:00; Stop 10/27/17 at 19:45; Status DC Memantine (Namenda) 5 mg DAILY PO Last administered on 10/31/17at 08:09; Start 10/26/17 at 09:00; Stop 11/02/17 at 09:01 Donepezil HCl (Aricept) 10 mg DAILY PO Last administered on 10/31/17at 08:09; Start 10/26/17 at 09:00; Stop 11/02/17 at 09:01 Divalproex Sodium (Depakote Sprinkles) 500 mg BID PO Last administered on at 19:56; Start 10/27/17 at 21:00; Stop 10/28/17 at 09:50; Status DC Lidocaine HCl 20 ml STK-MED ONCE .ROUTE ; Start 10/28/17 at 07:51; Stop at 07:52; Status DC Divalproex Sodium (Depakote Er) 1,000 mg QHS PO Last administered on 10/30/17at 20:04; Start 10/28/17 at 21:00 Insulin Glargine (Lantus) 10 units 1X ONCE SQ Last administered on 10/28/17at 19:36; Start 10/28/17 at 19:45; Stop 10/28/17 at 19:46; Status DC Buspirone HCl (Buspar) 5 mg TID@0900,1300,1700 PO Last administered on at 17:47; Start 10/31/17 at 09:00 Trazodone HCl (Desyrel) 50 mg QHS PO ; Start 10/31/17 at 21:00 Memantine (Namenda) 5 mg BID PO ; Start 11/02/17 at 21:00 Active Scripts Active Reported Paxil (Paroxetine Hcl) 20 Mg Tablet 20 Mg PO DAILYWSUP Ursodiol 500 Mg Tablet 500 Mg PO Lantus Solostar (Insulin Glargine,Hum.rec.anlog) 100 Unit/1 Ml Insuln.pen 15 Units SQ QHS Novolog Flexpen (Insulin Aspart) 100 Unit/1 Ml Insuln.pen 0-14 Units SQ Donepezil Hcl 5 Mg Tablet 5 Mg PO DAILY Dapsone 100 Mg Tablet 100 Mg PO DAILY Cyanocobalamin Injection (Cyanocobalamin (Vitamin B-12)) 1,000 Mcg/1 Ml Vial 1, 000 Mcg IJ WEEKLY Acyclovir 400 Mg Tablet 400 Mg PO Q12HR Magnesium (Magnesium Oxide) 400 Mg Capsule 400 Mg PO DAILY Prednisone 20 Mg Tablet 40 Mg PO DAILYWBKFT Noxafil (Posaconazole) 100 Mg Tablet. 100 Mg PO DAILYWBKFT Pantoprazole Sodium 40 Mg Tablet. 40 Mg PO DAILY Neosporin Ointment (Neomy Sulf/Bacitrac Zn/Poly) 28.3 Gm Oint...g. 1 Jennifer TP BID Depakote Er (Divalproex Sodium) 250 Mg Tab.er.24h 250 Mg PO BID I have reviewed the current psychotropics carefully including drug interactions. Risk benefit ratio favors no change other than as noted in my dictated progress note. Diagnosis: Problems: (1) Anxiety disorder (2) Lewy body dementia with behavioral disturbance (3) Impulse control disorder JAILENE SEO MD October 31, 2017 19:58
[2017-10-31] MEDS: INSULIN GLARGINE 300 UNITS/3 ML INSULN.PEN. SQ SCH (20:01)
--- NOTE | 2017-10-31 20:33 | PDOC ---
Exam Note: Clifford Note: Please also refer to the separate dictated note~for this date of service dictated separately.~Patient seen individually. Discussed the patient with Nursing staff reviewed the chart.~Reviewed interim history and current functioning. Reviewed vital signs,~Labs/ Radiology~and current medications noted below. Continue current treatment with the changes noted in the dictated addendum note Assessment: Vital Signs: Vital Signs Date Time Temp Pulse Resp B/P (MAP) Pulse Ox O2 Delivery O2 Flow Rate FiO2 10/31/17 16:43 98.6 104 16 113/75 (88) 94 10/30/17 16:43 Room Air I&O Intake and Output 10/31/17 07:00 Intake Total 960 ml Balance 960 ml Intake Oral 960 ml # Bowel Movements 1 Labs: Laboratory Tests Test 10/31/17 07:26 10/31/17 11:08 10/31/17 16:07 10/31/17 19:26 Glucose (Fingerstick) 136 mg/dL (70-99) H 189 mg/dL (70-99) H 344 mg/dL (70-99) H 304 mg/dL (70-99) H Current Medications: Meds: Current Medications Acetaminophen (Tylenol) 650 mg PRN Q6HRS PRN PO PAIN / TEMP Last administered on 10/28/17at 18:48; Start 10/23/17 at 19:45 Multi-Ingredient Ointment (Analgesic [place]) 1 jennifer PRN QID PRN TP MUSCLE PAIN; Start 10/23/17 at 19:45 Al Hydroxide/Mg Hydroxide (Mylanta Plus Xs) 15 ml PRN AFTMEALHC PRN PO DYSPEPSIA; Start 10/23/17 at 19:45 Magnesium Hydroxide (Milk Of Magnesia) 2,400 mg PRN QHS PRN PO CONSTIPATION; Start 10/23/17 at 19:45 Divalproex Sodium (Depakote Er) 250 mg BID PO Last administered on 10/24/17at 08 :12; Start 10/24/17 at 09:00; Stop 10/24/17 at 19:17; Status DC Cyanocobalamin (Vitamin B-12) 1,000 mcg WEEKLY IM Last administered on at 08:59; Start 10/30/17 at 09:00 Dapsone (Aczone) 100 mg DAILY PO Last administered on 10/31/17 08:12; Start at 09:00 Donepezil HCl (Aricept) 5 mg DAILY PO Last administered on 10/25/17at 07:58; Start 10/24/17 at 09:00; Stop 10/25/17 at 18:25; Status DC Insulin Glargine (Lantus) 15 units QHS SQ Last administered on 10/31/17 20:01 ; Start 10/24/17 at 21:00 Prednisone (Prednisone) 40 mg DAILYWBKFT PO Last administered on 10/31/17 08: 09; Start 10/24/17 at 08:00 Acyclovir (Zovirax) 400 mg Q12HR PO Last administered on 10/31/17 19:57; Start 10/24/17 at 09:00 Magnesium Oxide (Magnesium Oxide) 400 mg DAILY PO Last administered on 08:09; Start 10/24/17 at 09:00 Neomycin/ Polymyxin/ Bacitracin (Triple Antibiotic Ointment) 1 pkt BID TP Last administered on 10/26/17at 07:54; Start 10/24/17 at 09:00; Stop 10/26/17 at 13:18 ; Status DC Pantoprazole Sodium (Protonix) 40 mg DAILYAC PO Last administered on 10/31/17 08:09; Start 10/24/17 at 07:30 Non-Formulary Medication (Posaconazole (Noxafil)) 100 mg DAILYWBKFT PO ; Start 10/24/17 at 08:00; Stop 10/24/17 at 08:42; Status DC Insulin Human Lispro (HumaLOG) 0-9 UNITS TIDWMEALHC SQ Last administered on at 20:00; Start 10/24/17 at 08:00 Dextrose 12.5 gm PRN Q15MIN PRN IV SEE COMMENTS; Start 10/23/17 at 22:30 Paroxetine HCl (Paxil) 20 mg DAILYWSUP PO Last administered on 10/31/17at 17:47 ; Start 10/24/17 at 17:00 Trazodone HCl (Desyrel) 50 mg PRN QHS PRN PO INSOMNIA Last administered on 10/27at 20:56; Start 10/24/17 at 18:45; Stop 10/31/17 at 18:42; Status DC Olanzapine (ZyPREXA ZYDIS) 2.5 mg PRN Q2HR PRN PO ANXIETY / AGITATION; Start at 18:45 Divalproex Sodium (Depakote Er) 375 mg BID PO ; Start 10/24/17 at 21:00; Stop at 07:46; Status DC Divalproex Sodium (Depakote Sprinkles) 375 mg BID PO Last administered on at 08:19; Start 10/25/17 at 09:00; Stop 10/27/17 at 19:45; Status DC Memantine (Namenda) 5 mg DAILY PO Last administered on 10/31/17at 08:09; Start 10/26/17 at 09:00; Stop 11/02/17 at 09:01 Donepezil HCl (Aricept) 10 mg DAILY PO Last administered on 10/31/17at 08:09; Start 10/26/17 at 09:00; Stop 11/02/17 at 09:01 Divalproex Sodium (Depakote Sprinkles) 500 mg BID PO Last administered on at 19:56; Start 10/27/17 at 21:00; Stop 10/28/17 at 09:50; Status DC Lidocaine HCl 20 ml STK-MED ONCE .ROUTE ; Start 10/28/17 at 07:51; Stop at 07:52; Status DC Divalproex Sodium (Depakote Er) 1,000 mg QHS PO Last administered on 10/31/17at 19:57; Start 10/28/17 at 21:00 Insulin Glargine (Lantus) 10 units 1X ONCE SQ Last administered on 10/28/17at 19:36; Start 10/28/17 at 19:45; Stop 10/28/17 at 19:46; Status DC Buspirone HCl (Buspar) 5 mg TID@0900,1300,1700 PO Last administered on at 17:47; Start 10/31/17 at 09:00 Trazodone HCl (Desyrel) 50 mg QHS PO Last administered on 10/31/17at 19:58; Start 10/31/17 at 21:00 Memantine (Namenda) 5 mg BID PO ; Start 11/02/17 at 21:00 Active Scripts Active Reported Paxil (Paroxetine Hcl) 20 Mg Tablet 20 Mg PO DAILYWSUP Ursodiol 500 Mg Tablet 500 Mg PO Lantus Solostar (Insulin Glargine,Hum.rec.anlog) 100 Unit/1 Ml Insuln.pen 15 Units SQ QHS Novolog Flexpen (Insulin Aspart) 100 Unit/1 Ml Insuln.pen 0-14 Units SQ Donepezil Hcl 5 Mg Tablet 5 Mg PO DAILY Dapsone 100 Mg Tablet 100 Mg PO DAILY Cyanocobalamin Injection (Cyanocobalamin (Vitamin B-12)) 1,000 Mcg/1 Ml Vial 1, 000 Mcg IJ WEEKLY Acyclovir 400 Mg Tablet 400 Mg PO Q12HR Magnesium (Magnesium Oxide) 400 Mg Capsule 400 Mg PO DAILY Prednisone 20 Mg Tablet 40 Mg PO DAILYWBKFT Noxafil (Posaconazole) 100 Mg Tablet.dr 100 Mg PO DAILYWBKFT Pantoprazole Sodium 40 Mg Tablet.dr 40 Mg PO DAILY Neosporin Ointment (Neomy Sulf/Bacitrac Zn/Poly) 28.3 Gm Oint...g. 1 Jennifer TP BID Depakote Er (Divalproex Sodium) 250 Mg Tab.er.24h 250 Mg PO BID I have reviewed the current psychotropics carefully including drug interactions. Risk benefit ratio favors no change other than as noted in my dictated progress note. Diagnosis: Problems: (1) Anxiety disorder (2) Lewy body dementia with behavioral disturbance (3) Impulse control disorder JAILENE SEO MD October 31, 2017 20:33
--- NOTE | 2017-11-01 00:23 | PN ---
DATE: 10/30/2017 PSYCHIATRIC PROGRESS NOTE This is a late entry 10/30/2017 covers elements not covered in my initial note 10/30/2017. SUBJECTIVE: I met with the patient in the evening. The patient slept 6-1/2 hours, has been quite irritable, rude with nursing staff, condescending per nursing report. He remains anxious. Valproic acid level therapeutic at 52. WBC is increased. We will defer to Dr. Anton. REVIEW OF SYSTEMS: No CV, , pulmonary, eye, ENT system symptoms on review. MENTAL STATUS EXAM: Oriented to himself and situation. Speech, often responses monosyllabic, irritable. Abstraction fair, computation impaired, language function intact, attention span short. Mood and affect still somewhat paranoid. LABORATORY DATA: Reviewed. IMPRESSION: Major neurocognitive disorder, early Lewy body with delusion, depression. Rest unchanged. PLAN: Start BuSpar 5 mg 9 a.m., 1 p.m., 5 p.m. Continue Depakote at current dosage, Aricept along with Paxil, trazodone, may increase the Aricept and add Namenda given his Lewy body dementia diagnosis. MAN Raj SEO MD DR: DENA/marlon JOB#: [id number] / [id number]
[2017-11-01 05:55] VITALS: BP 131/76
[2017-11-01 06:21] VITALS: BP_SYST 145; BP_SYST 164; BP_DIAS 67; BP_DIAS 96
[2017-11-01] MEDS: INSULIN LISPRO 300 UNITS/3 ML INSULN.PEN. SQ SCH ×4 (08:40→19:57)
[2017-11-01] MEDS: DONEPEZIL HCL 10 MG TABLET PO SCH (08:42)
[2017-11-01] MEDS: MEMANTINE 5 MG TABLET. PO SCH (08:42)
[2017-11-01] MEDS: busPIRone 5 MG TABLET. PO SCH ×2 (08:42→19:47)
[2017-11-01] MEDS: predniSONE 20 MG TABLET PO SCH (08:42)
[2017-11-01] MEDS: MAGNESIUM OXIDE 400 MG TABLET PO SCH (08:42)
[2017-11-01] MEDS: PANTOPRAZOLE 40 MG TABLET. PO SCH (08:43)
[2017-11-01] MEDS: ACYCLOVIR 200 MG CAPSULE PO SCH ×2 (08:49→19:48)
[2017-11-01] MEDS: DAPSONE 100 MG TABLET PO SCH (08:49)
[2017-11-01 11:52] LABS: BASO # 0.1 x10^3/uL (0.0-0.2); BASO % 1 % (0-3); EOS % 0 % (0-3); HEMATOCRIT 36.4 % (39.0-53.0); HEMOGLOBIN 12.2 g/dL (13.0-17.5); LYMPH # 1.3 x10^3/uL (1.0-4.8); LYMPH % 12 % (24-48); MEAN CORPUSCULAR HEMOGLOBIN 33 pg (25-35); MEAN CORPUSCULAR HGB CONC 33 g/dL (31-37); MEAN CORPUSCULAR VOLUME 100 fL (79-100); MONO % 9 % (0-9); NEUT # 8.6 x10^3uL (1.8-7.7); NEUT % 78 % (31-73); PLATELET COUNT 181 x10^3/uL (140-400); RED BLOOD COUNT 3.64 x10^6/uL (4.30-5.70); RED CELL DISTRIBUTION WIDTH 15.7 % (11.5-14.5)
[2017-11-01 12:51] LABS: ALBUMIN 3.2 g/dL (3.4-5.0); ALBUMIN/GLOBULIN RATIO 1.1 (1.0-1.7); TOTAL PROTEIN 6.1 g/dL (6.4-8.2)
[2017-11-01 12:52] LABS: CALCIUM 8.8 mg/dL (8.5-10.1); CREATININE 1.5 mg/dL (0.7-1.3); GFR 46.1; POTASSIUM 4.2 mmol/L (3.5-5.1); TOTAL BILIRUBIN 1.2 mg/dL (0.2-1.0)
[2017-11-01 16:08] VITALS: BP 124/65
[2017-11-01] MEDS: PARoxetine 20 MG TABLET PO SCH (17:15)
[2017-11-01] MEDS: DIVALPROEX ER 500 MG TAB.ER.24H PO SCH (19:48)
[2017-11-01] MEDS: traZODone 50 MG TABLET. PO SCH (19:48)
[2017-11-01] MEDS: INSULIN GLARGINE 300 UNITS/3 ML INSULN.PEN. SQ SCH (19:55)
--- NOTE | 2017-11-01 20:50 | PDOC ---
Exam Note: Clifford Note: Please also refer to the separate dictated note~for this date of service dictated separately.~Patient seen individually. Discussed the patient with Nursing staff reviewed the chart.~Reviewed interim history and current functioning. Reviewed vital signs,~Labs/ Radiology~and current medications noted below. Continue current treatment with the changes noted in the dictated addendum note Assessment: Vital Signs: Vital Signs Date Time Temp Pulse Resp B/P (MAP) Pulse Ox O2 Delivery O2 Flow Rate FiO2 11/01/17 16:08 97.6 102 18 124/65 (84) 94 10/30/17 16:43 Room Air I&O Intake and Output 11/01/17 07:00 Intake Total 960 ml Balance 960 ml Intake Oral 960 ml Labs: Laboratory Tests Test 11/01/17 07:40 11/01/17 11:45 11/01/17 11:54 11/01/17 17:08 Glucose (Fingerstick) 110 mg/dL (70-99) H 264 mg/dL (70-99) H 357 mg/dL (70-99) H White Blood Count 11.0 x10^3/uL (4.0-11.0) Red Blood Count 3.64 x10^6/uL (4.30-5.70) L Hemoglobin 12.2 g/dL (13.0-17.5) L Hematocrit 36.4 % (39.0-53.0) L Mean Corpuscular Volume 100 fL (79-100) Mean Corpuscular Hemoglobin 33 pg (25-35) Mean Corpuscular Hemoglobin Concent 33 g/dL (31-37) Red Cell Distribution Width 15.7 % (11.5-14.5) H Platelet Count 181 x10^3/uL (140-400) Neutrophils (%) (Auto) 78 % (31-73) H Lymphocytes (%) (Auto) 12 % (24-48) L Monocytes (%) (Auto) 9 % (0-9) Eosinophils (%) (Auto) 0 % (0-3) Basophils (%) (Auto) 1 % (0-3) Neutrophils # (Auto) 8.6 x10^3uL (1.8-7.7) H Lymphocytes # (Auto) 1.3 x10^3/uL (1.0-4.8) Monocytes # (Auto) 1.0 x10^3/uL (0.0-1.1) Eosinophils # (Auto) 0.0 x10^3/uL (0.0-0.7) Basophils # (Auto) 0.1 x10^3/uL (0.0-0.2) Sodium Level 140 mmol/L (136-145) Potassium Level 4.2 mmol/L (3.5-5.1) Chloride Level 103 mmol/L (98-107) Carbon Dioxide Level 29 mmol/L (21-32) Anion Gap 8 (6-14) Blood Urea Nitrogen 33 mg/dL (8-26) H Creatinine 1.5 mg/dL (0.7-1.3) H Estimated GFR (Cockcroft-Gault) 46.1 BUN/Creatinine Ratio 22 (6-20) H Glucose Level 290 mg/dL (70-99) H Calcium Level 8.8 mg/dL (8.5-10.1) Total Bilirubin 1.2 mg/dL (0.2-1.0) H Aspartate Amino Transferase (AST) 46 U/L (15-37) H Alanine Aminotransferase (ALT) 38 U/L (16-63) Alkaline Phosphatase 58 U/L (46-116) Total Protein 6.1 g/dL (6.4-8.2) L Albumin 3.2 g/dL (3.4-5.0) L Albumin/Globulin Ratio 1.1 (1.0-1.7) Test 11/01/17 19:13 Glucose (Fingerstick) 459 mg/dL (70-99) H Current Medications: Meds: Current Medications Acetaminophen (Tylenol) 650 mg PRN Q6HRS PRN PO PAIN / TEMP Last administered on 10/28/17at 18:48; Start 10/23/17 at 19:45 Multi-Ingredient Ointment (Analgesic [place]) 1 jennifer PRN QID PRN TP MUSCLE PAIN; Start 10/23/17 at 19:45 Al Hydroxide/Mg Hydroxide (Mylanta Plus Xs) 15 ml PRN AFTMEALHC PRN PO DYSPEPSIA; Start 10/23/17 at 19:45 Magnesium Hydroxide (Milk Of Magnesia) 2,400 mg PRN QHS PRN PO CONSTIPATION; Start 10/23/17 at 19:45 Divalproex Sodium (Depakote Er) 250 mg BID PO Last administered on 10/24/17 08 :12; Start 10/24/17 at 09:00; Stop 10/24/17 at 19:17; Status DC Cyanocobalamin (Vitamin B-12) 1,000 mcg WEEKLY IM Last administered on 08:59; Start 10/30/17 at 09:00 Dapsone (Aczone) 100 mg DAILY PO Last administered on 11/01/17at 08:49; Start at 09:00 Donepezil HCl (Aricept) 5 mg DAILY PO Last administered on 10/25/17 07:58; Start 10/24/17 at 09:00; Stop 10/25/17 at 18:25; Status DC Insulin Glargine (Lantus) 15 units QHS SQ Last administered on 11/01/17 19:55 ; Start 10/24/17 at 21:00 Prednisone (Prednisone) 40 mg DAILYWBKFT PO Last administered on 11/01/17at 08: 42; Start 10/24/17 at 08:00 Acyclovir (Zovirax) 400 mg Q12HR PO Last administered on 11/01/17 19:48; Start 10/24/17 at 09:00 Magnesium Oxide (Magnesium Oxide) 400 mg DAILY PO Last administered on 08:42; Start 10/24/17 at 09:00 Neomycin/ Polymyxin/ Bacitracin (Triple Antibiotic Ointment) 1 pkt BID TP Last administered on 10/26/17at 07:54; Start 10/24/17 at 09:00; Stop 10/26/17 at 13:18 ; Status DC Pantoprazole Sodium (Protonix) 40 mg DAILYAC PO Last administered on 11/01/17 08:43; Start 10/24/17 at 07:30 Non-Formulary Medication (Posaconazole (Noxafil)) 100 mg DAILYWBKFT PO ; Start 10/24/17 at 08:00; Stop 10/24/17 at 08:42; Status DC Insulin Human Lispro (HumaLOG) 0-9 UNITS TIDWMEALHC SQ Last administered on 19:57; Start 10/24/17 at 08:00 Dextrose 12.5 gm PRN Q15MIN PRN IV SEE COMMENTS; Start 10/23/17 at 22:30 Paroxetine HCl (Paxil) 20 mg DAILYWSUP PO Last administered on 11/01/17at 17:15 ; Start 10/24/17 at 17:00 Trazodone HCl (Desyrel) 50 mg PRN QHS PRN PO INSOMNIA Last administered on 10/27at 20:56; Start 10/24/17 at 18:45; Stop 10/31/17 at 18:42; Status DC Olanzapine (ZyPREXA ZYDIS) 2.5 mg PRN Q2HR PRN PO ANXIETY / AGITATION; Start at 18:45 Divalproex Sodium (Depakote Er) 375 mg BID PO ; Start 10/24/17 at 21:00; Stop at 07:46; Status DC Divalproex Sodium (Depakote Sprinkles) 375 mg BID PO Last administered on at 08:19; Start 10/25/17 at 09:00; Stop 10/27/17 at 19:45; Status DC Memantine (Namenda) 5 mg DAILY PO Last administered on 11/01/17at 08:42; Start 10/26/17 at 09:00; Stop 11/02/17 at 09:01 Donepezil HCl (Aricept) 10 mg DAILY PO Last administered on 11/01/17at 08:42; Start 10/26/17 at 09:00; Stop 11/02/17 at 09:01 Divalproex Sodium (Depakote Sprinkles) 500 mg BID PO Last administered on at 19:56; Start 10/27/17 at 21:00; Stop 10/28/17 at 09:50; Status DC Lidocaine HCl 20 ml STK-MED ONCE .ROUTE ; Start 10/28/17 at 07:51; Stop at 07:52; Status DC Divalproex Sodium (Depakote Er) 1,000 mg QHS PO Last administered on 11/01/17at 19:48; Start 10/28/17 at 21:00 Insulin Glargine (Lantus) 10 units 1X ONCE SQ Last administered on 10/28/17at 19:36; Start 10/28/17 at 19:45; Stop 10/28/17 at 19:46; Status DC Buspirone HCl (Buspar) 5 mg TID@0900,1300,1700 PO Last administered on at 08:42; Start 10/31/17 at 09:00; Stop 11/01/17 at 12:33; Status DC Trazodone HCl (Desyrel) 50 mg QHS PO Last administered on 11/01/17at 19:48; Start 10/31/17 at 21:00 Memantine (Namenda) 5 mg BID PO ; Start 11/02/17 at 21:00 Buspirone HCl (Buspar) 10 mg DAILY PO ; Start 11/02/17 at 09:00 Buspirone HCl (Buspar) 5 mg BID@1300,2100 PO Last administered on 11/01/17at 19: 47; Start 11/01/17 at 21:00 Active Scripts Active Reported Paxil (Paroxetine Hcl) 20 Mg Tablet 20 Mg PO DAILYWSUP Ursodiol 500 Mg Tablet 500 Mg PO Lantus Solostar (Insulin Glargine,Hum.rec.anlog) 100 Unit/1 Ml Insuln.pen 15 Units SQ QHS Novolog Flexpen (Insulin Aspart) 100 Unit/1 Ml Insuln.pen 0-14 Units SQ Donepezil Hcl 5 Mg Tablet 5 Mg PO DAILY Dapsone 100 Mg Tablet 100 Mg PO DAILY Cyanocobalamin Injection (Cyanocobalamin (Vitamin B-12)) 1,000 Mcg/1 Ml Vial 1, 000 Mcg IJ WEEKLY Acyclovir 400 Mg Tablet 400 Mg PO Q12HR Magnesium (Magnesium Oxide) 400 Mg Capsule 400 Mg PO DAILY Prednisone 20 Mg Tablet 40 Mg PO DAILYWBKFT Noxafil (Posaconazole) 100 Mg Tablet.dr 100 Mg PO DAILYWBKFT Pantoprazole Sodium 40 Mg Tablet.dr 40 Mg PO DAILY Neosporin Ointment (Neomy Sulf/Bacitrac Zn/Poly) 28.3 Gm Oint...g. 1 Jennifer TP BID Depakote Er (Divalproex Sodium) 250 Mg Tab.er.24h 250 Mg PO BID I have reviewed the current psychotropics carefully including drug interactions. Risk benefit ratio favors no change other than as noted in my dictated progress note. Diagnosis: Problems: (1) Anxiety disorder (2) Lewy body dementia with behavioral disturbance (3) Impulse control disorder JAILENE SEO MD November 01, 2017 20:50
[2017-11-02 05:49] VITALS: BP 106/66
[2017-11-02] MEDS: MAGNESIUM OXIDE 400 MG TABLET PO SCH (07:49)
[2017-11-02] MEDS: DONEPEZIL HCL 10 MG TABLET PO SCH (07:50)
[2017-11-02] MEDS: DAPSONE 100 MG TABLET PO SCH (07:50)
[2017-11-02] MEDS: PANTOPRAZOLE 40 MG TABLET. PO SCH (07:50)
[2017-11-02] MEDS: ACYCLOVIR 200 MG CAPSULE PO SCH ×2 (07:50→20:44)
[2017-11-02] MEDS: predniSONE 20 MG TABLET PO SCH (07:50)
[2017-11-02] MEDS: MEMANTINE 5 MG TABLET. PO SCH ×2 (07:50→20:45)
[2017-11-02] MEDS: busPIRone 10 MG TABLET. PO SCH (07:51)
[2017-11-02] MEDS: INSULIN LISPRO 300 UNITS/3 ML INSULN.PEN. SQ SCH ×5 (08:00→21:00)
[2017-11-02] MEDS: busPIRone 5 MG TABLET. PO SCH ×2 (13:20→20:44)
[2017-11-02 16:21] VITALS: BP 114/85
[2017-11-02] MEDS: PARoxetine 20 MG TABLET PO SCH (18:00)
--- NOTE | 2017-11-02 19:53 | PDOC ---
Exam Note: Clifford Note: Please also refer to the separate dictated note~for this date of service dictated separately.~Patient seen individually. Discussed the patient with Nursing staff reviewed the chart.~Reviewed interim history and current functioning. Reviewed vital signs,~Labs/ Radiology~and current medications noted below. Continue current treatment with the changes noted in the dictated addendum note Assessment: Vital Signs: Vital Signs Date Time Temp Pulse Resp B/P (MAP) Pulse Ox O2 Delivery O2 Flow Rate FiO2 11/02/17 16:21 98.1 98 18 114/85 (95) 94 Room Air I&O Intake and Output 11/02/17 07:00 Intake Total 1400 ml Balance 1400 ml Intake Oral 1400 ml Labs: Laboratory Tests Test 11/02/17 07:20 11/02/17 11:35 11/02/17 16:53 11/02/17 19:22 Glucose (Fingerstick) 87 mg/dL (70-99) 163 mg/dL (70-99) H 270 mg/dL (70-99) H 348 mg/dL (70-99) H Current Medications: Meds: Current Medications Acetaminophen (Tylenol) 650 mg PRN Q6HRS PRN PO PAIN / TEMP Last administered on 10/28/17at 18:48; Start 10/23/17 at 19:45 Multi-Ingredient Ointment (Analgesic [place]) 1 jennifer PRN QID PRN TP MUSCLE PAIN; Start 10/23/17 at 19:45 Al Hydroxide/Mg Hydroxide (Mylanta Plus Xs) 15 ml PRN AFTMEALHC PRN PO DYSPEPSIA; Start 10/23/17 at 19:45 Magnesium Hydroxide (Milk Of Magnesia) 2,400 mg PRN QHS PRN PO CONSTIPATION; Start 10/23/17 at 19:45 Divalproex Sodium (Depakote Er) 250 mg BID PO Last administered on 10/24/17at 08 :12; Start 10/24/17 at 09:00; Stop 10/24/17 at 19:17; Status DC Cyanocobalamin (Vitamin B-12) 1,000 mcg WEEKLY IM Last administered on at 08:59; Start 10/30/17 at 09:00 Dapsone (Aczone) 100 mg DAILY PO Last administered on 11/02/17at 07:50; Start at 09:00 Donepezil HCl (Aricept) 5 mg DAILY PO Last administered on 10/25/17at 07:58; Start 10/24/17 at 09:00; Stop 10/25/17 at 18:25; Status DC Insulin Glargine (Lantus) 15 units QHS SQ Last administered on 11/01/17at 19:55 ; Start 10/24/17 at 21:00 Prednisone (Prednisone) 40 mg DAILYWBKFT PO Last administered on 11/02/17at 07: 50; Start 10/24/17 at 08:00 Acyclovir (Zovirax) 400 mg Q12HR PO Last administered on 11/02/17 07:50; Start 10/24/17 at 09:00 Magnesium Oxide (Magnesium Oxide) 400 mg DAILY PO Last administered on at 07:49; Start 10/24/17 at 09:00 Neomycin/ Polymyxin/ Bacitracin (Triple Antibiotic Ointment) 1 pkt BID TP Last administered on 10/26/17at 07:54; Start 10/24/17 at 09:00; Stop 10/26/17 at 13:18 ; Status DC Pantoprazole Sodium (Protonix) 40 mg DAILYAC PO Last administered on 11/02/17at 07:50; Start 10/24/17 at 07:30 Non-Formulary Medication (Posaconazole (Noxafil)) 100 mg DAILYWBKFT PO ; Start 10/24/17 at 08:00; Stop 10/24/17 at 08:42; Status DC Insulin Human Lispro (HumaLOG) 0-9 UNITS TIDWMEALHC SQ Last administered on at 17:00; Start 10/24/17 at 08:00 Dextrose 12.5 gm PRN Q15MIN PRN IV SEE COMMENTS; Start 10/23/17 at 22:30 Paroxetine HCl (Paxil) 20 mg DAILYWSUP PO Last administered on 11/02/17at 18:00 ; Start 10/24/17 at 17:00 Trazodone HCl (Desyrel) 50 mg PRN QHS PRN PO INSOMNIA Last administered on 10/27at 20:56; Start 10/24/17 at 18:45; Stop 10/31/17 at 18:42; Status DC Olanzapine (ZyPREXA ZYDIS) 2.5 mg PRN Q2HR PRN PO ANXIETY / AGITATION; Start at 18:45 Divalproex Sodium (Depakote Er) 375 mg BID PO ; Start 10/24/17 at 21:00; Stop at 07:46; Status DC Divalproex Sodium (Depakote Sprinkles) 375 mg BID PO Last administered on at 08:19; Start 10/25/17 at 09:00; Stop 10/27/17 at 19:45; Status DC Memantine (Namenda) 5 mg DAILY PO Last administered on 11/02/17at 07:50; Start 10/26/17 at 09:00; Stop 11/02/17 at 09:01; Status DC Donepezil HCl (Aricept) 10 mg DAILY PO Last administered on 11/02/17at 07:50; Start 10/26/17 at 09:00; Stop 11/02/17 at 09:01; Status DC Divalproex Sodium (Depakote Sprinkles) 500 mg BID PO Last administered on at 19:56; Start 10/27/17 at 21:00; Stop 10/28/17 at 09:50; Status DC Lidocaine HCl 20 ml STK-MED ONCE .ROUTE ; Start 10/28/17 at 07:51; Stop at 07:52; Status DC Divalproex Sodium (Depakote Er) 1,000 mg QHS PO Last administered on 11/01/17at 19:48; Start 10/28/17 at 21:00 Insulin Glargine (Lantus) 10 units 1X ONCE SQ Last administered on 10/28/17at 19:36; Start 10/28/17 at 19:45; Stop 10/28/17 at 19:46; Status DC Buspirone HCl (Buspar) 5 mg TID@0900,1300,1700 PO Last administered on at 08:42; Start 10/31/17 at 09:00; Stop 11/01/17 at 12:33; Status DC Trazodone HCl (Desyrel) 50 mg QHS PO Last administered on 11/01/17at 19:48; Start 10/31/17 at 21:00 Memantine (Namenda) 5 mg BID PO ; Start 11/02/17 at 21:00 Buspirone HCl (Buspar) 10 mg DAILY PO Last administered on 11/02/17at 07:51; Start 11/02/17 at 09:00 Buspirone HCl (Buspar) 5 mg BID@1300,2100 PO Last administered on 11/02/17at 13: 20; Start 11/01/17 at 21:00 Active Scripts Active Reported Paxil (Paroxetine Hcl) 20 Mg Tablet 20 Mg PO DAILYWSUP Ursodiol 500 Mg Tablet 500 Mg PO Lantus Solostar (Insulin Glargine,Hum.rec.anlog) 100 Unit/1 Ml Insuln.pen 15 Units SQ QHS Novolog Flexpen (Insulin Aspart) 100 Unit/1 Ml Insuln.pen 0-14 Units SQ Donepezil Hcl 5 Mg Tablet 5 Mg PO DAILY Dapsone 100 Mg Tablet 100 Mg PO DAILY Cyanocobalamin Injection (Cyanocobalamin (Vitamin B-12)) 1,000 Mcg/1 Ml Vial 1, 000 Mcg IJ WEEKLY Acyclovir 400 Mg Tablet 400 Mg PO Q12HR Magnesium (Magnesium Oxide) 400 Mg Capsule 400 Mg PO DAILY Prednisone 20 Mg Tablet 40 Mg PO DAILYWBKFT Noxafil (Posaconazole) 100 Mg Tablet. 100 Mg PO DAILYWBKFT Pantoprazole Sodium 40 Mg Tablet. 40 Mg PO DAILY Neosporin Ointment (Neomy Sulf/Bacitrac Zn/Poly) 28.3 Gm Oint...g. 1 Jennifer TP BID Depakote Er (Divalproex Sodium) 250 Mg Tab.er.24h 250 Mg PO BID I have reviewed the current psychotropics carefully including drug interactions. Risk benefit ratio favors no change other than as noted in my dictated progress note. Diagnosis: Problems: (1) Anxiety disorder (2) Lewy body dementia with behavioral disturbance (3) Impulse control disorder JAILENE SEO MD November 02, 2017 19:53
[2017-11-02] MEDS: traZODone 50 MG TABLET. PO SCH (20:43)
[2017-11-02] MEDS: DIVALPROEX ER 500 MG TAB.ER.24H PO SCH (20:43)
[2017-11-02] MEDS: INSULIN GLARGINE 300 UNITS/3 ML INSULN.PEN. SQ SCH ×2 (20:49→21:00)
--- NOTE | 2017-11-02 21:29 | PN ---
DATE: 10/31/2017 This is a late entry 10/31/2017 covers elements not covered in my initial note 10/31/2017. SUBJECTIVE: I met with the patient in the evening. The patient slept 8-1/2 hours, received p.r.n. trazodone. No CV, , pulmonary, eye system symptoms on review. Gait a little unsteady. MENTAL STATUS EXAM: Reasonably oriented to himself and situation, not to place or date. Speech moderate latency, still somewhat sarcastic, irritable, withdrawn at times. Abstraction fair, computation impaired, slightly suspicious. No suicidal or homicidal ideation. LABORATORY DATA: Reviewed. IMPRESSION: Unchanged from initial note; major neurocognitive disorder, Lewy body possible versus psychotic disorder, unspecified; major depressive disorder with psychotic features. PLAN: Continue current psychotropics, but given the diagnosis of Lewy body dementia, we will increase the Aricept to 10 mg a day, Namenda 5 mg daily for 2 days, then 5 mg twice a day. We will increase further gradually. Continue Paxil, trazodone, Zyprexa and the Depakote. Valproic acid level therapeutic at 52. MAN Raj SEO MD DR: DENA/marlon JOB#: [id number] / [id number]
--- NOTE | 2017-11-02 21:42 | PN ---
DATE: 11/01/2017 This late entry 11/01/2017 covers elements not covered in my initial note 11/01/2017. SUBJECTIVE: I met with the patient evening of 11/01/2017 and staffed at treatment team meeting with the entire team at great length and the patient's , Daphnie attended this conference in the morning of 11/01/2017. The patient is sleeping 7-8 hours. Appetite 100%. He has had some dizziness and we have checked for postural hypotension and this is positive. He has been giving extra fluids to hydrate him and SCOT hose as well. No CV, , pulmonary, eye system symptoms on review. MENTAL STATUS EXAM: Oriented to himself and situation. Speech moderate latency, often responses monosyllabic, still depressed, paranoid, less so than before. Abstraction fair, computation impaired, language function intact. Attention span short. No suicidal or homicidal ideation. LABORATORY DATA: Reviewed. IMPRESSION: Unchanged from initial note. PLAN: Continue current psychotropics, but given his dizziness we will stop the BuSpar for now. MAN Raj SEO MD DR: DENA/marlon JOB#: [id number] / [id number]
[2017-11-03 06:27] VITALS: BP 131/81
[2017-11-03] MEDS: DAPSONE 100 MG TABLET PO SCH (07:47)
[2017-11-03] MEDS: PANTOPRAZOLE 40 MG TABLET. PO SCH (07:47)
[2017-11-03] MEDS: ACYCLOVIR 200 MG CAPSULE PO SCH ×2 (07:47→22:35)
[2017-11-03] MEDS: predniSONE 20 MG TABLET PO SCH (07:47)
[2017-11-03] MEDS: MAGNESIUM OXIDE 400 MG TABLET PO SCH (07:47)
[2017-11-03] MEDS: MEMANTINE 5 MG TABLET. PO SCH ×2 (07:48→20:36)
[2017-11-03] MEDS: busPIRone 10 MG TABLET. PO SCH (07:48)
[2017-11-03] MEDS: INSULIN LISPRO 300 UNITS/3 ML INSULN.PEN. SQ SCH ×4 (07:49→22:29)
[2017-11-03 09:35] VITALS: BP 127/82
[2017-11-03 09:40] VITALS: BP 110/77
[2017-11-03 09:42] VITALS: BP 82/57
[2017-11-03] MEDS: busPIRone 5 MG TABLET. PO SCH ×2 (13:33→20:37)
[2017-11-03 16:25] VITALS: BP 107/68
[2017-11-03 16:26] VITALS: BP_SYST 107; BP_SYST 118; BP_DIAS 63; BP_DIAS 68
[2017-11-03] MEDS: PARoxetine 20 MG TABLET PO SCH (17:16)
[2017-11-03] MEDS: DIVALPROEX ER 500 MG TAB.ER.24H PO SCH (20:36)
[2017-11-03] MEDS: traZODone 50 MG TABLET. PO SCH (20:37)
[2017-11-03] MEDS: INSULIN GLARGINE 300 UNITS/3 ML INSULN.PEN. SQ SCH (22:28)
--- NOTE | 2017-11-03 23:25 | PDOC ---
Exam Note: Clifford Note: Please also refer to the separate dictated note~for this date of service dictated separately.~Patient seen individually. Discussed the patient with Nursing staff reviewed the chart.~Reviewed interim history and current functioning. Reviewed vital signs,~Labs/ Radiology~and current medications noted below. Continue current treatment with the changes noted in the dictated addendum note Assessment: Vital Signs: Vital Signs Date Time Temp Pulse Resp B/P (MAP) Pulse Ox O2 Delivery O2 Flow Rate FiO2 11/03/17 16:26 81 118/63 (81) 11/03/17 16:25 98.5 20 95 Room Air I&O Intake and Output 11/03/17 07:00 Intake Total 1680 ml Balance 1680 ml Intake Oral 1680 ml Labs: Laboratory Tests Test 11/03/17 07:45 11/03/17 11:34 11/03/17 16:53 11/03/17 19:02 Glucose (Fingerstick) 144 mg/dL (70-99) H 222 mg/dL (70-99) H 389 mg/dL (70-99) H 363 mg/dL (70-99) H Current Medications: Meds: Current Medications Acetaminophen (Tylenol) 650 mg PRN Q6HRS PRN PO PAIN / TEMP Last administered on 10/28/17at 18:48; Start 10/23/17 at 19:45 Multi-Ingredient Ointment (Analgesic [place]) 1 jennifer PRN QID PRN TP MUSCLE PAIN; Start 10/23/17 at 19:45 Al Hydroxide/Mg Hydroxide (Mylanta Plus Xs) 15 ml PRN AFTMEALHC PRN PO DYSPEPSIA; Start 10/23/17 at 19:45 Magnesium Hydroxide (Milk Of Magnesia) 2,400 mg PRN QHS PRN PO CONSTIPATION; Start 10/23/17 at 19:45 Divalproex Sodium (Depakote Er) 250 mg BID PO Last administered on 10/24/17at 08 :12; Start 10/24/17 at 09:00; Stop 10/24/17 at 19:17; Status DC Cyanocobalamin (Vitamin B-12) 1,000 mcg WEEKLY IM Last administered on at 08:59; Start 10/30/17 at 09:00 Dapsone (Aczone) 100 mg DAILY PO Last administered on 11/03/17 07:47; Start at 09:00 Donepezil HCl (Aricept) 5 mg DAILY PO Last administered on 10/25/17at 07:58; Start 10/24/17 at 09:00; Stop 10/25/17 at 18:25; Status DC Insulin Glargine (Lantus) 15 units QHS SQ Last administered on 11/03/17at 22:28 ; Start 10/24/17 at 21:00 Prednisone (Prednisone) 40 mg DAILYWBKFT PO Last administered on 11/03/17at 07: 47; Start 10/24/17 at 08:00 Acyclovir (Zovirax) 400 mg Q12HR PO Last administered on 11/03/17 22:35; Start 10/24/17 at 09:00 Magnesium Oxide (Magnesium Oxide) 400 mg DAILY PO Last administered on at 07:47; Start 10/24/17 at 09:00 Neomycin/ Polymyxin/ Bacitracin (Triple Antibiotic Ointment) 1 pkt BID TP Last administered on 10/26/17at 07:54; Start 10/24/17 at 09:00; Stop 10/26/17 at 13:18 ; Status DC Pantoprazole Sodium (Protonix) 40 mg DAILYAC PO Last administered on 11/03/17at 07:47; Start 10/24/17 at 07:30 Non-Formulary Medication (Posaconazole (Noxafil)) 100 mg DAILYWBKFT PO ; Start 10/24/17 at 08:00; Stop 10/24/17 at 08:42; Status DC Insulin Human Lispro (HumaLOG) 0-9 UNITS TIDWMEALHC SQ Last administered on at 22:29; Start 10/24/17 at 08:00 Dextrose 12.5 gm PRN Q15MIN PRN IV SEE COMMENTS; Start 10/23/17 at 22:30 Paroxetine HCl (Paxil) 20 mg DAILYWSUP PO Last administered on 11/03/17at 17:16 ; Start 10/24/17 at 17:00 Trazodone HCl (Desyrel) 50 mg PRN QHS PRN PO INSOMNIA Last administered on 10/27at 20:56; Start 10/24/17 at 18:45; Stop 10/31/17 at 18:42; Status DC Olanzapine (ZyPREXA ZYDIS) 2.5 mg PRN Q2HR PRN PO ANXIETY / AGITATION; Start at 18:45 Divalproex Sodium (Depakote Er) 375 mg BID PO ; Start 10/24/17 at 21:00; Stop at 07:46; Status DC Divalproex Sodium (Depakote Sprinkles) 375 mg BID PO Last administered on at 08:19; Start 10/25/17 at 09:00; Stop 10/27/17 at 19:45; Status DC Memantine (Namenda) 5 mg DAILY PO Last administered on 11/02/17at 07:50; Start 10/26/17 at 09:00; Stop 11/02/17 at 09:01; Status DC Donepezil HCl (Aricept) 10 mg DAILY PO Last administered on 11/02/17at 07:50; Start 10/26/17 at 09:00; Stop 11/02/17 at 09:01; Status DC Divalproex Sodium (Depakote Sprinkles) 500 mg BID PO Last administered on at 19:56; Start 10/27/17 at 21:00; Stop 10/28/17 at 09:50; Status DC Lidocaine HCl 20 ml STK-MED ONCE .ROUTE ; Start 10/28/17 at 07:51; Stop at 07:52; Status DC Divalproex Sodium (Depakote Er) 1,000 mg QHS PO Last administered on 11/03/17at 20:36; Start 10/28/17 at 21:00 Insulin Glargine (Lantus) 10 units 1X ONCE SQ Last administered on 10/28/17at 19:36; Start 10/28/17 at 19:45; Stop 10/28/17 at 19:46; Status DC Buspirone HCl (Buspar) 5 mg TID@0900,1300,1700 PO Last administered on at 08:42; Start 10/31/17 at 09:00; Stop 11/01/17 at 12:33; Status DC Trazodone HCl (Desyrel) 50 mg QHS PO Last administered on 11/03/17at 20:37; Start 10/31/17 at 21:00 Memantine (Namenda) 5 mg BID PO Last administered on 11/03/17at 20:36; Start at 21:00 Buspirone HCl (Buspar) 10 mg DAILY PO Last administered on 11/03/17at 07:48; Start 11/02/17 at 09:00 Buspirone HCl (Buspar) 5 mg BID@1300,2100 PO Last administered on 11/03/17at 20: 37; Start 11/01/17 at 21:00 Active Scripts Active Reported Paxil (Paroxetine Hcl) 20 Mg Tablet 20 Mg PO DAILYWSUP Ursodiol 500 Mg Tablet 500 Mg PO Lantus Solostar (Insulin Glargine,Hum.rec.anlog) 100 Unit/1 Ml Insuln.pen 15 Units SQ QHS Novolog Flexpen (Insulin Aspart) 100 Unit/1 Ml Insuln.pen 0-14 Units SQ Donepezil Hcl 5 Mg Tablet 5 Mg PO DAILY Dapsone 100 Mg Tablet 100 Mg PO DAILY Cyanocobalamin Injection (Cyanocobalamin (Vitamin B-12)) 1,000 Mcg/1 Ml Vial 1, 000 Mcg IJ WEEKLY Acyclovir 400 Mg Tablet 400 Mg PO Q12HR Magnesium (Magnesium Oxide) 400 Mg Capsule 400 Mg PO DAILY Prednisone 20 Mg Tablet 40 Mg PO DAILYWBKFT Noxafil (Posaconazole) 100 Mg Tablet. 100 Mg PO DAILYWBKFT Pantoprazole Sodium 40 Mg Tablet. 40 Mg PO DAILY Neosporin Ointment (Neomy Sulf/Bacitrac Zn/Poly) 28.3 Gm Oint...g. 1 Jennifer TP BID Depakote Er (Divalproex Sodium) 250 Mg Tab.er.24h 250 Mg PO BID I have reviewed the current psychotropics carefully including drug interactions. Risk benefit ratio favors no change other than as noted in my dictated progress note. Diagnosis: Problems: (1) Anxiety disorder (2) Lewy body dementia with behavioral disturbance (3) Impulse control disorder JAILENE SEO MD November 03, 2017 23:25
[2017-11-04 06:24] VITALS: BP 132/90
[2017-11-04 06:25] VITALS: BP_SYST 97; BP_SYST 99; BP_DIAS 65; BP_DIAS 69
[2017-11-04] MEDS: INSULIN LISPRO 300 UNITS/3 ML INSULN.PEN. SQ SCH ×4 (08:00→20:32)
[2017-11-04] MEDS: MAGNESIUM OXIDE 400 MG TABLET PO SCH (09:46)
[2017-11-04] MEDS: busPIRone 10 MG TABLET. PO SCH (09:46)
[2017-11-04] MEDS: DAPSONE 100 MG TABLET PO SCH (09:46)
[2017-11-04] MEDS: predniSONE 20 MG TABLET PO SCH (09:46)
[2017-11-04] MEDS: MEMANTINE 5 MG TABLET. PO SCH ×2 (09:46→20:29)
[2017-11-04] MEDS: ACYCLOVIR 200 MG CAPSULE PO SCH ×2 (09:46→20:31)
[2017-11-04] MEDS: PANTOPRAZOLE 40 MG TABLET. PO SCH (09:47)
[2017-11-04] MEDS: busPIRone 5 MG TABLET. PO SCH ×2 (12:29→20:29)
[2017-11-04 16:49] VITALS: BP 105/62
[2017-11-04] MEDS: PARoxetine 20 MG TABLET PO SCH (17:10)
[2017-11-04] MEDS: traZODone 50 MG TABLET. PO SCH (20:29)
[2017-11-04] MEDS: DIVALPROEX ER 500 MG TAB.ER.24H PO SCH (20:33)
[2017-11-04] MEDS: INSULIN GLARGINE 300 UNITS/3 ML INSULN.PEN. SQ SCH (20:33)
--- NOTE | 2017-11-04 20:59 | PDOC ---
Exam Note: Clifford Note: Please also refer to the separate dictated note~for this date of service dictated separately.~Patient seen individually. Discussed the patient with Nursing staff reviewed the chart.~Reviewed interim history and current functioning. Reviewed vital signs,~Labs/ Radiology~and current medications noted below. Continue current treatment with the changes noted in the dictated addendum note Assessment: Vital Signs: Vital Signs Date Time Temp Pulse Resp B/P (MAP) Pulse Ox O2 Delivery O2 Flow Rate FiO2 11/04/17 16:49 98.0 105 16 105/62 (76) 93 11/03/17 16:25 Room Air I&O Intake and Output 11/04/17 07:00 Intake Total 1440 ml Balance 1440 ml Intake Oral 1440 ml Labs: Laboratory Tests Test 11/04/17 07:37 11/04/17 11:12 11/04/17 16:16 11/04/17 19:35 Glucose (Fingerstick) 124 mg/dL (70-99) H 160 mg/dL (70-99) H 245 mg/dL (70-99) H 292 mg/dL (70-99) H Current Medications: Meds: Current Medications Acetaminophen (Tylenol) 650 mg PRN Q6HRS PRN PO PAIN / TEMP Last administered on 10/28/17at 18:48; Start 10/23/17 at 19:45 Multi-Ingredient Ointment (Analgesic [place]) 1 jennifer PRN QID PRN TP MUSCLE PAIN; Start 10/23/17 at 19:45 Al Hydroxide/Mg Hydroxide (Mylanta Plus Xs) 15 ml PRN AFTMEALHC PRN PO DYSPEPSIA; Start 10/23/17 at 19:45 Magnesium Hydroxide (Milk Of Magnesia) 2,400 mg PRN QHS PRN PO CONSTIPATION; Start 10/23/17 at 19:45 Divalproex Sodium (Depakote Er) 250 mg BID PO Last administered on 10/24/17at 08 :12; Start 10/24/17 at 09:00; Stop 10/24/17 at 19:17; Status DC Cyanocobalamin (Vitamin B-12) 1,000 mcg WEEKLY IM Last administered on at 08:59; Start 10/30/17 at 09:00 Dapsone (Aczone) 100 mg DAILY PO Last administered on 11/04/17 09:46; Start at 09:00 Donepezil HCl (Aricept) 5 mg DAILY PO Last administered on 10/25/17at 07:58; Start 10/24/17 at 09:00; Stop 10/25/17 at 18:25; Status DC Insulin Glargine (Lantus) 15 units QHS SQ Last administered on 11/04/17 20:33 ; Start 10/24/17 at 21:00 Prednisone (Prednisone) 40 mg DAILYWBKFT PO Last administered on 11/04/17 09: 46; Start 10/24/17 at 08:00 Acyclovir (Zovirax) 400 mg Q12HR PO Last administered on 11/04/17 20:31; Start 10/24/17 at 09:00 Magnesium Oxide (Magnesium Oxide) 400 mg DAILY PO Last administered on 09:46; Start 10/24/17 at 09:00 Neomycin/ Polymyxin/ Bacitracin (Triple Antibiotic Ointment) 1 pkt BID TP Last administered on 10/26/17at 07:54; Start 10/24/17 at 09:00; Stop 10/26/17 at 13:18 ; Status DC Pantoprazole Sodium (Protonix) 40 mg DAILYAC PO Last administered on 11/04/17at 09:47; Start 10/24/17 at 07:30 Non-Formulary Medication (Posaconazole (Noxafil)) 100 mg DAILYWBKFT PO ; Start 10/24/17 at 08:00; Stop 10/24/17 at 08:42; Status DC Insulin Human Lispro (HumaLOG) 0-9 UNITS TIDWMEALHC SQ Last administered on at 20:32; Start 10/24/17 at 08:00 Dextrose 12.5 gm PRN Q15MIN PRN IV SEE COMMENTS; Start 10/23/17 at 22:30 Paroxetine HCl (Paxil) 20 mg DAILYWSUP PO Last administered on 11/04/17at 17:10 ; Start 10/24/17 at 17:00 Trazodone HCl (Desyrel) 50 mg PRN QHS PRN PO INSOMNIA Last administered on 10/27at 20:56; Start 10/24/17 at 18:45; Stop 10/31/17 at 18:42; Status DC Olanzapine (ZyPREXA ZYDIS) 2.5 mg PRN Q2HR PRN PO ANXIETY / AGITATION; Start at 18:45 Divalproex Sodium (Depakote Er) 375 mg BID PO ; Start 10/24/17 at 21:00; Stop at 07:46; Status DC Divalproex Sodium (Depakote Sprinkles) 375 mg BID PO Last administered on at 08:19; Start 10/25/17 at 09:00; Stop 10/27/17 at 19:45; Status DC Memantine (Namenda) 5 mg DAILY PO Last administered on 11/02/17at 07:50; Start 10/26/17 at 09:00; Stop 11/02/17 at 09:01; Status DC Donepezil HCl (Aricept) 10 mg DAILY PO Last administered on 11/02/17at 07:50; Start 10/26/17 at 09:00; Stop 11/02/17 at 09:01; Status DC Divalproex Sodium (Depakote Sprinkles) 500 mg BID PO Last administered on at 19:56; Start 10/27/17 at 21:00; Stop 10/28/17 at 09:50; Status DC Lidocaine HCl 20 ml STK-MED ONCE .ROUTE ; Start 10/28/17 at 07:51; Stop at 07:52; Status DC Divalproex Sodium (Depakote Er) 1,000 mg QHS PO Last administered on 11/04/17at 20:33; Start 10/28/17 at 21:00 Insulin Glargine (Lantus) 10 units 1X ONCE SQ Last administered on 10/28/17at 19:36; Start 10/28/17 at 19:45; Stop 10/28/17 at 19:46; Status DC Buspirone HCl (Buspar) 5 mg TID@0900,1300,1700 PO Last administered on at 08:42; Start 10/31/17 at 09:00; Stop 11/01/17 at 12:33; Status DC Trazodone HCl (Desyrel) 50 mg QHS PO Last administered on 11/04/17at 20:29; Start 10/31/17 at 21:00 Memantine (Namenda) 5 mg BID PO Last administered on 11/04/17 20:29; Start at 21:00 Buspirone HCl (Buspar) 10 mg DAILY PO Last administered on 11/04/17at 09:46; Start 11/02/17 at 09:00 Buspirone HCl (Buspar) 5 mg BID@1300,2100 PO Last administered on 11/04/17at 20: 29; Start 11/01/17 at 21:00 Active Scripts Active Reported Paxil (Paroxetine Hcl) 20 Mg Tablet 20 Mg PO DAILYWSUP Ursodiol 500 Mg Tablet 500 Mg PO Lantus Solostar (Insulin Glargine,Hum.rec.anlog) 100 Unit/1 Ml Insuln.pen 15 Units SQ QHS Novolog Flexpen (Insulin Aspart) 100 Unit/1 Ml Insuln.pen 0-14 Units SQ Donepezil Hcl 5 Mg Tablet 5 Mg PO DAILY Dapsone 100 Mg Tablet 100 Mg PO DAILY Cyanocobalamin Injection (Cyanocobalamin (Vitamin B-12)) 1,000 Mcg/1 Ml Vial 1, 000 Mcg IJ WEEKLY Acyclovir 400 Mg Tablet 400 Mg PO Q12HR Magnesium (Magnesium Oxide) 400 Mg Capsule 400 Mg PO DAILY Prednisone 20 Mg Tablet 40 Mg PO DAILYWBKFT Noxafil (Posaconazole) 100 Mg Tablet. 100 Mg PO DAILYWBKFT Pantoprazole Sodium 40 Mg Tablet. 40 Mg PO DAILY Neosporin Ointment (Neomy Sulf/Bacitrac Zn/Poly) 28.3 Gm Oint...g. 1 Jennifer TP BID Depakote Er (Divalproex Sodium) 250 Mg Tab.er.24h 250 Mg PO BID I have reviewed the current psychotropics carefully including drug interactions. Risk benefit ratio favors no change other than as noted in my dictated progress note. Diagnosis: Problems: (1) Anxiety disorder (2) Lewy body dementia with behavioral disturbance (3) Impulse control disorder JAILENE SEO MD November 04, 2017 20:59
[2017-11-05 06:32] VITALS: BP 119/82
[2017-11-05] MEDS: PANTOPRAZOLE 40 MG TABLET. PO SCH ×2 (07:30→08:05)
[2017-11-05] MEDS: INSULIN LISPRO 300 UNITS/3 ML INSULN.PEN. SQ SCH ×6 (08:00→21:00)
[2017-11-05] MEDS: predniSONE 20 MG TABLET PO SCH ×2 (08:00→08:05)
[2017-11-05] MEDS: MEMANTINE 5 MG TABLET. PO SCH ×3 (08:04→21:19)
[2017-11-05] MEDS: DAPSONE 100 MG TABLET PO SCH ×2 (08:04→09:00)
[2017-11-05] MEDS: MAGNESIUM OXIDE 400 MG TABLET PO SCH ×2 (08:04→09:00)
[2017-11-05] MEDS: busPIRone 10 MG TABLET. PO SCH ×2 (08:04→09:00)
[2017-11-05] MEDS: ACYCLOVIR 200 MG CAPSULE PO SCH ×3 (08:05→21:19)
[2017-11-05] MEDS: busPIRone 5 MG TABLET. PO SCH ×2 (12:13→21:19)
[2017-11-05 16:02] VITALS: BP 100/66
[2017-11-05] MEDS: PARoxetine 20 MG TABLET PO SCH (17:00)
--- NOTE | 2017-11-05 20:42 | PDOC ---
Exam Note: Clifford Note: Please also refer to the separate dictated note~for this date of service dictated separately.~Patient seen individually. Discussed the patient with Nursing staff reviewed the chart.~Reviewed interim history and current functioning. Reviewed vital signs,~Labs/ Radiology~and current medications noted below. Continue current treatment with the changes noted in the dictated addendum note Assessment: Vital Signs: Vital Signs Date Time Temp Pulse Resp B/P (MAP) Pulse Ox O2 Delivery O2 Flow Rate FiO2 11/05/17 16:02 98.6 106 18 100/66 (77) 93 11/03/17 16:25 Room Air I&O Intake and Output 11/05/17 07:00 Intake Total 1080 ml Balance 1080 ml Intake Oral 1080 ml # Voids 1 Labs: Laboratory Tests Test 11/05/17 07:26 11/05/17 11:41 11/05/17 17:09 11/05/17 20:19 Glucose (Fingerstick) 164 mg/dL (70-99) H 196 mg/dL (70-99) H 193 mg/dL (70-99) H 192 mg/dL (70-99) H Current Medications: Meds: Current Medications Acetaminophen (Tylenol) 650 mg PRN Q6HRS PRN PO PAIN / TEMP Last administered on 10/28/17at 18:48; Start 10/23/17 at 19:45 Multi-Ingredient Ointment (Analgesic [place]) 1 jennifer PRN QID PRN TP MUSCLE PAIN; Start 10/23/17 at 19:45 Al Hydroxide/Mg Hydroxide (Mylanta Plus Xs) 15 ml PRN AFTMEALHC PRN PO DYSPEPSIA; Start 10/23/17 at 19:45 Magnesium Hydroxide (Milk Of Magnesia) 2,400 mg PRN QHS PRN PO CONSTIPATION; Start 10/23/17 at 19:45 Divalproex Sodium (Depakote Er) 250 mg BID PO Last administered on 10/24/17at 08 :12; Start 10/24/17 at 09:00; Stop 10/24/17 at 19:17; Status DC Cyanocobalamin (Vitamin B-12) 1,000 mcg WEEKLY IM Last administered on at 08:59; Start 10/30/17 at 09:00 Dapsone (Aczone) 100 mg DAILY PO Last administered on 11/04/17 09:46; Start at 09:00 Donepezil HCl (Aricept) 5 mg DAILY PO Last administered on 10/25/17at 07:58; Start 10/24/17 at 09:00; Stop 10/25/17 at 18:25; Status DC Insulin Glargine (Lantus) 15 units QHS SQ Last administered on 11/04/17 20:33 ; Start 10/24/17 at 21:00 Prednisone (Prednisone) 40 mg DAILYWBKFT PO Last administered on 11/04/17 09: 46; Start 10/24/17 at 08:00 Acyclovir (Zovirax) 400 mg Q12HR PO Last administered on 11/04/17 20:31; Start 10/24/17 at 09:00 Magnesium Oxide (Magnesium Oxide) 400 mg DAILY PO Last administered on 09:46; Start 10/24/17 at 09:00 Neomycin/ Polymyxin/ Bacitracin (Triple Antibiotic Ointment) 1 pkt BID TP Last administered on 10/26/17at 07:54; Start 10/24/17 at 09:00; Stop 10/26/17 at 13:18 ; Status DC Pantoprazole Sodium (Protonix) 40 mg DAILYAC PO Last administered on 11/04/17 09:47; Start 10/24/17 at 07:30 Non-Formulary Medication (Posaconazole (Noxafil)) 100 mg DAILYWBKFT PO ; Start 10/24/17 at 08:00; Stop 10/24/17 at 08:42; Status DC Insulin Human Lispro (HumaLOG) 0-9 UNITS TIDWMEALHC SQ Last administered on at 20:32; Start 10/24/17 at 08:00 Dextrose 12.5 gm PRN Q15MIN PRN IV SEE COMMENTS; Start 10/23/17 at 22:30 Paroxetine HCl (Paxil) 20 mg DAILYWSUP PO Last administered on 11/04/17at 17:10 ; Start 10/24/17 at 17:00 Trazodone HCl (Desyrel) 50 mg PRN QHS PRN PO INSOMNIA Last administered on 10/27at 20:56; Start 10/24/17 at 18:45; Stop 10/31/17 at 18:42; Status DC Olanzapine (ZyPREXA ZYDIS) 2.5 mg PRN Q2HR PRN PO ANXIETY / AGITATION; Start at 18:45 Divalproex Sodium (Depakote Er) 375 mg BID PO ; Start 10/24/17 at 21:00; Stop at 07:46; Status DC Divalproex Sodium (Depakote Sprinkles) 375 mg BID PO Last administered on at 08:19; Start 10/25/17 at 09:00; Stop 10/27/17 at 19:45; Status DC Memantine (Namenda) 5 mg DAILY PO Last administered on 11/02/17at 07:50; Start 10/26/17 at 09:00; Stop 11/02/17 at 09:01; Status DC Donepezil HCl (Aricept) 10 mg DAILY PO Last administered on 11/02/17at 07:50; Start 10/26/17 at 09:00; Stop 11/02/17 at 09:01; Status DC Divalproex Sodium (Depakote Sprinkles) 500 mg BID PO Last administered on at 19:56; Start 10/27/17 at 21:00; Stop 10/28/17 at 09:50; Status DC Lidocaine HCl 20 ml STK-MED ONCE .ROUTE ; Start 10/28/17 at 07:51; Stop at 07:52; Status DC Divalproex Sodium (Depakote Er) 1,000 mg QHS PO Last administered on 11/04/17at 20:33; Start 10/28/17 at 21:00 Insulin Glargine (Lantus) 10 units 1X ONCE SQ Last administered on 10/28/17at 19:36; Start 10/28/17 at 19:45; Stop 10/28/17 at 19:46; Status DC Buspirone HCl (Buspar) 5 mg TID@0900,1300,1700 PO Last administered on at 08:42; Start 10/31/17 at 09:00; Stop 11/01/17 at 12:33; Status DC Trazodone HCl (Desyrel) 50 mg QHS PO Last administered on 11/04/17at 20:29; Start 10/31/17 at 21:00 Memantine (Namenda) 5 mg BID PO Last administered on 11/04/17 20:29; Start at 21:00 Buspirone HCl (Buspar) 10 mg DAILY PO Last administered on 11/04/17at 09:46; Start 11/02/17 at 09:00 Buspirone HCl (Buspar) 5 mg BID@1300,2100 PO Last administered on 11/04/17at 20: 29; Start 11/01/17 at 21:00 Active Scripts Active Reported Paxil (Paroxetine Hcl) 20 Mg Tablet 20 Mg PO DAILYWSUP Ursodiol 500 Mg Tablet 500 Mg PO Lantus Solostar (Insulin Glargine,Hum.rec.anlog) 100 Unit/1 Ml Insuln.pen 15 Units SQ QHS Novolog Flexpen (Insulin Aspart) 100 Unit/1 Ml Insuln.pen 0-14 Units SQ Donepezil Hcl 5 Mg Tablet 5 Mg PO DAILY Dapsone 100 Mg Tablet 100 Mg PO DAILY Cyanocobalamin Injection (Cyanocobalamin (Vitamin B-12)) 1,000 Mcg/1 Ml Vial 1, 000 Mcg IJ WEEKLY Acyclovir 400 Mg Tablet 400 Mg PO Q12HR Magnesium (Magnesium Oxide) 400 Mg Capsule 400 Mg PO DAILY Prednisone 20 Mg Tablet 40 Mg PO DAILYWBKFT Noxafil (Posaconazole) 100 Mg Tablet. 100 Mg PO DAILYWBKFT Pantoprazole Sodium 40 Mg Tablet. 40 Mg PO DAILY Neosporin Ointment (Neomy Sulf/Bacitrac Zn/Poly) 28.3 Gm Oint...g. 1 Jennifer TP BID Depakote Er (Divalproex Sodium) 250 Mg Tab.er.24h 250 Mg PO BID I have reviewed the current psychotropics carefully including drug interactions. Risk benefit ratio favors no change other than as noted in my dictated progress note. Diagnosis: Problems: (1) Anxiety disorder (2) Lewy body dementia with behavioral disturbance (3) Impulse control disorder JAILENE SEO MD November 05, 2017 20:42
[2017-11-05] MEDS: DIVALPROEX ER 500 MG TAB.ER.24H PO SCH (21:00)
[2017-11-05] MEDS: traZODone 50 MG TABLET. PO SCH (21:19)
[2017-11-05] MEDS: INSULIN GLARGINE 300 UNITS/3 ML INSULN.PEN. SQ SCH (21:20)
--- NOTE | 2017-11-05 22:19 | PN ---
DATE: 11/02/2017 PSYCHIATRIC PROGRESS NOTE This is a late entry 11/02/2017, covers elements not covered in my initial note 11/02/2017. SUBJECTIVE: I met with the patient in the evening. The patient slept 6-1/4 hours, refused his at bedtime insulin because he states it makes him fall. He has been little irritable. REVIEW OF SYSTEMS: Ambulation impaired with walker. No CV, , pulmonary, eye system symptoms on review. He does still have orthostatic drops in blood pressure, will defer to Dr. Anton and consider pharmacy consult to see if anything from his current medication regimen could be contributing to this. No CV, , pulmonary, eye, ENT system symptoms on review. MENTAL STATUS EXAM: Oriented to himself and situation. Speech coherent, often responses monosyllabic. Abstraction fair, computation impaired, language function intact, attention span short. Mood and affect withdrawn. LABORATORY DATA: Reviewed. IMPRESSION: Unchanged from initial note. Major neurocognitive disorder, Alzheimer, vascular with depression, delusion. PLAN: Continue current psychotropics, given the probability of Lewy body dementia. We will add Namenda and gradually increase to therapeutic dosage and continue Aricept. JAILENE SEO MD DR: DENA/marlon JOB#: [id number] / [id number]
--- NOTE | 2017-11-05 23:01 | PN ---
DATE: 11/03/2017 PSYCHIATRIC PROGRESS NOTE This late entry 11/03/2017 covers the elements not covered in my initial note 11/03/2017. Met with the patient in the evening. The patient slept 6-1/2 hours, tries to cover up his short term memory deficits, per nursing report. Sutures will be removed morning of 11/04/2017. Orthostatic blood pressure drops, persistent. We will have a pharmacy consult to clarify if any of his medications could be contributing to it and defer to Dr. Anton. REVIEW OF SYSTEMS: Ambulation impaired with walker. No CV, , pulmonary, eye system symptoms on review. MENTAL STATUS EXAM: Oriented to himself and situation. Speech has some latency, often responses monosyllabic. Abstraction fair, computation impaired, language function intact. Mood and affect withdrawn. LABORATORY DATA: Reviewed. IMPRESSION: Major neurocognitive disorder, Lewy body with delusion, depression, behavioral disturbance. PLAN: Continue psychotropics from initial note. JAILENE SEO MD DR: DENA/marlon JOB#: [id number] / [id number]
[2017-11-06] MEDS ORDERED: METH29OI TP (03:17)
[2017-11-06] MEDS ORDERED: ACET325T9 PO (03:18)
[2017-11-06] MEDS ORDERED: TRAZ-85 PO (03:22)
[2017-11-06] MEDS ORDERED: OLAN2.5T3 PO (03:25)
[2017-11-06] MEDS ORDERED: BUSP10TA PO (03:26)
[2017-11-06] MEDS ORDERED: BUSP5TAB PO (03:28)
[2017-11-06] MEDS ORDERED: MEMA10TA PO ×2 (03:29)
[2017-11-06] MEDS ORDERED: MAG30ORA2 PO (03:34)
[2017-11-06] MEDS ORDERED: MAGN400O7 PO (03:37)
[2017-11-06] MEDS ORDERED: DIVA500T17 PO (03:45)
[2017-11-06 06:24] VITALS: BP 103/62
[2017-11-06] MEDS: INSULIN LISPRO 300 UNITS/3 ML INSULN.PEN. SQ SCH ×2 (08:00→12:36)
[2017-11-06] MEDS: MEMANTINE 5 MG TABLET. PO SCH (08:57)
[2017-11-06] MEDS: busPIRone 10 MG TABLET. PO SCH (08:57)
[2017-11-06] MEDS: predniSONE 20 MG TABLET PO SCH (08:57)
[2017-11-06] MEDS: MAGNESIUM OXIDE 400 MG TABLET PO SCH (08:57)
[2017-11-06] MEDS: PANTOPRAZOLE 40 MG TABLET. PO SCH (08:57)
[2017-11-06] MEDS: DAPSONE 100 MG TABLET PO SCH (08:58)
[2017-11-06] MEDS: CYANOCOBALAMIN (VITAMIN B-12) 1,000 MCG/ML VIAL IM SCH (08:58)
[2017-11-06] MEDS: ACYCLOVIR 200 MG CAPSULE PO SCH (08:59)
[2017-11-06] MEDS: busPIRone 5 MG TABLET. PO SCH (12:32)
--- NOTE | 2017-11-06 20:31 | PDOC ---
Exam Note: Clifford Note: Please also refer to the separate dictated note~for this date of service dictated separately.~Patient seen individually. Discussed the patient with Nursing staff reviewed the chart.~Reviewed interim history and current functioning. Reviewed vital signs,~Labs/ Radiology~and current medications noted below. Continue current treatment with the changes noted in the dictated addendum note Assessment: Vital Signs: Vital Signs Date Time Temp Pulse Resp B/P (MAP) Pulse Ox O2 Delivery O2 Flow Rate FiO2 11/06/17 06:24 97.5 83 16 103/62 (76) 94 11/03/17 16:25 Room Air I&O Intake and Output 11/06/17 07:00 Intake Total 1320 ml Balance 1320 ml Intake Oral 1320 ml Labs: Laboratory Tests Test 11/06/17 07:53 11/06/17 11:33 Glucose (Fingerstick) 90 mg/dL (70-99) 172 mg/dL (70-99) H Current Medications: Meds: Current Medications Acetaminophen (Tylenol) 650 mg PRN Q6HRS PRN PO PAIN / TEMP Last administered on 10/28/17at 18:48; Start 10/23/17 at 19:45; Stop 11/06/17 at 15:45; Status DC Multi-Ingredient Ointment (Analgesic [place]) 1 jennifer PRN QID PRN TP MUSCLE PAIN; Start 10/23/17 at 19:45; Stop 11/06/17 at 15:45; Status DC Al Hydroxide/Mg Hydroxide (Mylanta Plus Xs) 15 ml PRN AFTMEALHC PRN PO DYSPEPSIA; Start 10/23/17 at 19:45; Stop 11/06/17 at 15:45; Status DC Magnesium Hydroxide (Milk Of Magnesia) 2,400 mg PRN QHS PRN PO CONSTIPATION; Start 10/23/17 at 19:45; Stop 11/06/17 at 15:45; Status DC Divalproex Sodium (Depakote Er) 250 mg BID PO Last administered on 10/24/17at 08 :12; Start 10/24/17 at 09:00; Stop 10/24/17 at 19:17; Status DC Cyanocobalamin (Vitamin B-12) 1,000 mcg WEEKLY IM Last administered on at 08:58; Start 10/30/17 at 09:00; Stop 11/06/17 at 15:45; Status DC Dapsone (Aczone) 100 mg DAILY PO Last administered on 11/06/17at 08:58; Start at 09:00; Stop 11/06/17 at 15:45; Status DC Donepezil HCl (Aricept) 5 mg DAILY PO Last administered on 10/25/17at 07:58; Start 10/24/17 at 09:00; Stop 10/25/17 at 18:25; Status DC Insulin Glargine (Lantus) 15 units QHS SQ Last administered on 11/05/17at 21:20 ; Start 10/24/17 at 21:00; Stop 11/06/17 at 15:45; Status DC Prednisone (Prednisone) 40 mg DAILYWBKFT PO Last administered on 11/06/17at 08: 57; Start 10/24/17 at 08:00; Stop 11/06/17 at 15:45; Status DC Acyclovir (Zovirax) 400 mg Q12HR PO Last administered on 11/06/17at 08:59; Start 10/24/17 at 09:00; Stop 11/06/17 at 15:45; Status DC Magnesium Oxide (Magnesium Oxide) 400 mg DAILY PO Last administered on at 08:57; Start 10/24/17 at 09:00; Stop 11/06/17 at 15:45; Status DC Neomycin/ Polymyxin/ Bacitracin (Triple Antibiotic Ointment) 1 pkt BID TP Last administered on 10/26/17at 07:54; Start 10/24/17 at 09:00; Stop 10/26/17 at 13:18 ; Status DC Pantoprazole Sodium (Protonix) 40 mg DAILYAC PO Last administered on 11/06/17at 08:57; Start 10/24/17 at 07:30; Stop 11/06/17 at 15:45; Status DC Non-Formulary Medication (Posaconazole (Noxafil)) 100 mg DAILYWBKFT PO ; Start 10/24/17 at 08:00; Stop 10/24/17 at 08:42; Status DC Insulin Human Lispro (HumaLOG) 0-9 UNITS TIDWMEALHC SQ Last administered on at 12:36; Start 10/24/17 at 08:00; Stop 11/06/17 at 15:45; Status DC Dextrose 12.5 gm PRN Q15MIN PRN IV SEE COMMENTS; Start 10/23/17 at 22:30; Stop 11/06/17 at 15:45; Status DC Paroxetine HCl (Paxil) 20 mg DAILYWSUP PO Last administered on 11/04/17at 17:10 ; Start 10/24/17 at 17:00; Stop 11/06/17 at 15:45; Status DC Trazodone HCl (Desyrel) 50 mg PRN QHS PRN PO INSOMNIA Last administered on 10/27at 20:56; Start 10/24/17 at 18:45; Stop 10/31/17 at 18:42; Status DC Olanzapine (ZyPREXA ZYDIS) 2.5 mg PRN Q2HR PRN PO ANXIETY / AGITATION; Start at 18:45; Stop 11/06/17 at 15:45; Status DC Divalproex Sodium (Depakote Er) 375 mg BID PO ; Start 10/24/17 at 21:00; Stop at 07:46; Status DC Divalproex Sodium (Depakote Sprinkles) 375 mg BID PO Last administered on at 08:19; Start 10/25/17 at 09:00; Stop 10/27/17 at 19:45; Status DC Memantine (Namenda) 5 mg DAILY PO Last administered on 11/02/17at 07:50; Start 10/26/17 at 09:00; Stop 11/02/17 at 09:01; Status DC Donepezil HCl (Aricept) 10 mg DAILY PO Last administered on 11/02/17at 07:50; Start 10/26/17 at 09:00; Stop 11/02/17 at 09:01; Status DC Divalproex Sodium (Depakote Sprinkles) 500 mg BID PO Last administered on at 19:56; Start 10/27/17 at 21:00; Stop 10/28/17 at 09:50; Status DC Lidocaine HCl 20 ml STK-MED ONCE .ROUTE ; Start 10/28/17 at 07:51; Stop at 07:52; Status DC Divalproex Sodium (Depakote Er) 1,000 mg QHS PO Last administered on 11/04/17at 20:33; Start 10/28/17 at 21:00; Stop 11/06/17 at 15:45; Status DC Insulin Glargine (Lantus) 10 units 1X ONCE SQ Last administered on 10/28/17at 19:36; Start 10/28/17 at 19:45; Stop 10/28/17 at 19:46; Status DC Buspirone HCl (Buspar) 5 mg TID@0900,1300,1700 PO Last administered on at 08:42; Start 10/31/17 at 09:00; Stop 11/01/17 at 12:33; Status DC Trazodone HCl (Desyrel) 50 mg QHS PO Last administered on 11/05/17at 21:19; Start 10/31/17 at 21:00; Stop 11/06/17 at 15:45; Status DC Memantine (Namenda) 5 mg BID PO Last administered on 11/06/17at 08:57; Start at 21:00; Stop 11/06/17 at 15:45; Status DC Buspirone HCl (Buspar) 10 mg DAILY PO Last administered on 11/06/17at 08:57; Start 11/02/17 at 09:00; Stop 11/06/17 at 15:45; Status DC Buspirone HCl (Buspar) 5 mg BID@1300,2100 PO Last administered on 11/06/17at 12: 32; Start 11/01/17 at 21:00; Stop 11/06/17 at 15:45; Status DC Active Scripts Active Reported Divalproex Sodium Er (Divalproex Sodium) 500 Mg Tab.er.24h 1,000 Mg PO QHS Milk Of Magnesia (Magnesium Hydroxide) 400 Mg/5 Ml Oral.susp 2,400 Mg PO PRN QHS PRN Mag-Al Plus Xs Suspension (Mag Hydrox/Al Hydrox/Simeth) 30 Ml Oral.susp 15 Ml PO PRN AFTMEALHC PRN Namenda (Memantine Hcl) 10 Mg Tablet 5 Mg PO BID Buspirone Hcl 5 Mg Tablet 5 Mg PO BID@1300,2100 Buspirone Hcl 10 Mg Tablet 10 Mg PO DAILY Zyprexa (Olanzapine) 2.5 Mg Tablet 2.5 Mg PO PRN Q2HR PRN Trazodone Hcl 50 Mg Tablet 50 Mg PO QHS Tylenol (Acetaminophen) 325 Mg Tablet 650 Mg PO PRN Q6HRS PRN Analgesic [place] (Methyl Salicylate/Menthol) 28 Gm Oint...g. 1 Jennifer TP PRN QID PRN Paxil (Paroxetine Hcl) 20 Mg Tablet 20 Mg PO DAILYWSUP Lantus Solostar (Insulin Glargine,Hum.rec.anlog) 100 Unit/1 Ml Insuln.pen 15 Units SQ QHS Novolog Flexpen (Insulin Aspart) 100 Unit/1 Ml Insuln.pen 0-9 Units SQ TIDWMEALHC eating not eating/HS 70-150 0 0 151-200 4 0 201-250 5 3 251-300 7 4 301-350 9 5 >350 call provider Dapsone 100 Mg Tablet 100 Mg PO DAILY Cyanocobalamin Injection (Cyanocobalamin (Vitamin B-12)) 1,000 Mcg/1 Ml Vial 1, 000 Mcg IJ WEEKLY Acyclovir 400 Mg Tablet 400 Mg PO Q12HR Magnesium (Magnesium Oxide) 400 Mg Capsule 400 Mg PO DAILY Prednisone 20 Mg Tablet 40 Mg PO DAILYWBKFT Pantoprazole Sodium 40 Mg Tablet. 40 Mg PO DAILYAC I have reviewed the current psychotropics carefully including drug interactions. Risk benefit ratio favors no change other than as noted in my dictated progress note. Diagnosis: Problems: (1) Anxiety disorder (2) Lewy body dementia with behavioral disturbance (3) Impulse control disorder JAILENE SEO MD November 06, 2017 20:31
--- NOTE | 2017-11-07 12:00 | PN ---
DATE: 11/04/2017 PSYCHIATRIC PROGRESS NOTE This is a late entry 11/04/2017 covers elements not covered in my initial note 11/04/2017. SUBJECTIVE: I met with the patient in the evening. Overall, the patient's bg were removed from his hand. He still has some orthostatic blood pressure drops and we will apply a SCOT hose to help with this. Have him stand up slowly to avoid dizziness. He uses the walker. REVIEW OF SYSTEMS: No CV, , pulmonary, eye system symptoms on review. Reliability varies. MENTAL STATUS EXAM: Oriented to himself and situation. Speech, often responses monosyllabic, little paranoid. Abstraction fair, computation impaired, language function intact. Mood and affect, lability, anxiety appears better. LABORATORY DATA: Reviewed. IMPRESSION: Unchanged from initial note. No change other than what is mentioned above and continue medications noted in my initial note. MAN Raj SEO MD DR: DENA/marlon JOB#: [id number] / [id number]
--- NOTE | 2017-11-07 12:05 | PN ---
DATE: 11/05/2017 PSYCHIATRIC PROGRESS NOTE This is a late entry 11/05/2017, covers elements not covered in my initial note 11/05/2017. SUBJECTIVE: I met with the patient in the evening. Overall, the patient continues to have some orthostatic blood pressure drops, kilo hose is being placed. He sometimes refuses medications, less aggressive. Still somewhat suspicious, paranoid, but improved. REVIEW OF SYSTEMS: Ambulation impaired, uses a walker. No CV, , pulmonary, eye system symptoms on review. Reliability poor. MENTAL STATUS EXAM: Oriented to self, situation. Speech moderate latency, often responses monosyllabic. Abstraction fair, computation impaired, language function intact. Mood and affect less irritable, anxious. LABORATORY DATA: Reviewed. IMPRESSION: Unchanged from initial note. PLAN: Continue current psychotropics. Outpatient followup should be at the [facility] at the [facility]. JAILENE SEO MD DR: DENA/marlon JOB#: [id number] / [id number]
--- NOTE | 2017-11-08 13:40 | DS ---
DATE OF DISCHARGE: 11/06/2017 DISCHARGE SUMMARY/PSYCHIATRIC PROGRESS NOTE This is a late entry of 11/06/2017, covers the elements not covered in my initial note of 11/06/2017. REASON FOR ADMISSION: Please refer to the admission history for details. 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 The patient had been living at home and had become extremely agitated, aggressive, paranoid within the context of his confusion. At [facility], he was confused, forgetful, verbally aggressive, eloped of the secure unit on 2 different occasions. He had failed outpatient psychiatric interventions resulting in this referral. SIGNIFICANT FINDINGS AND CLINICAL COURSE: Following admission, the patient was seen daily individually by myself, followed medically per Dr. Anton/Dr. Brantley. He remained quite paranoid, intermittently restless, agitated, somewhat monosyllabic in his verbal responses and dismissive. Adjustments were made in his psychotropics and he seemed to respond to a combination of Aricept 10 mg a day, Depakote ER 1000 mg at bedtime with a valproic acid level that was therapeutic, Paxil 20 mg a day, trazodone 50 mg at bedtime, Zyprexa p.r.n., Namenda 5 mg b.i.d. to be increased gradually, BuSpar 10 mg daily and 5 mg at 1300 and 2100. REVIEW OF SYSTEMS: Prior to discharge on 11/06/2017, no CV, , pulmonary, eye, ENT system symptoms on review. MENTAL STATUS EXAM: Oriented to himself. Insight, judgment, recent memory is impaired. Language function intact. Attention span short. Mood and affect remains somewhat labile at times but paranoia was better. CONDITION AT DISCHARGE: Improved. 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 Rest unchanged from admission. DISCHARGE MEDICATIONS: Please refer to the EMRAD. DISCHARGE INSTRUCTIONS: Outpatient psychiatric and medical followup as arranged with his outpatient providers, but he returned home with his and additional services in the home. Time for discharge day management greater than 30 minutes. JAILENE SEO MD DR: DENA/marlon JOB#: [id number] / [id number]
== END 2017-11-06 15:45 | disposition home health service (06) | DRG 56 ==
LOC: GEROPSY 19:03
PROVIDERS: ADMIT Psychiatry & Neurology Psychiatry; ATTEND Psychiatry & Neurology Psychiatry
PROC: 0HQ1XZZ Repair Face Skin, External Approach (ICD-10-PCS; principal; 2017-10-24)
DX: G30.9 Alzheimer's disease, unspecified (principal); E11.00 Type 2 diabetes mellitus with hyperosmolarity without nonketotic hyperglycemic-hyperosmolar coma (NKHHC); N17.9 Acute kidney failure, unspecified; Z94.84 Stem cells transplant status; F01.51 Vascular dementia, unspecified severity, with behavioral disturbance; F02.81 Dementia in other diseases classified elsewhere, unspecified severity, with behavioral disturbance; E11.22 Type 2 diabetes mellitus with diabetic chronic kidney disease; W06.XXXA Fall from bed, initial encounter; R29.6 Repeated falls; G31.83 Neurocognitive disorder with Lewy bodies; F32.9 Major depressive disorder, single episode, unspecified; F41.9 Anxiety disorder, unspecified; F63.9 Impulse disorder, unspecified; M10.9 Gout, unspecified; I12.9 Hypertensive chronic kidney disease with stage 1 through stage 4 chronic kidney disease, or unspecified chronic kidney disease; M19.90 Unspecified osteoarthritis, unspecified site; N18.9 Chronic kidney disease, unspecified; S01.81XA Laceration without foreign body of other part of head, initial encounter; Y92.238 Other place in hospital as the place of occurrence of the external cause; Z79.899 Other long term (current) drug therapy; Z88.8 Allergy status to other drugs, medicaments and biological substances; Z87.891 Personal history of nicotine dependence; Z90.49 Acquired absence of other specified parts of digestive tract; Z90.89 Acquired absence of other organs; Y93.89 Activity, other specified; Y99.8 Other external cause status
CPT/HCPCS: 36415; 70450; 70486; 80053; 80061; 80164; 81001; 82607; 82947; 83036; 83540; 83550; 83735; 84436; 84443; 84480; 85007; 85025; 86593; 87086; 93005; J1815; J3420; J7512; 97110; 97116